=== PATIENT | female | born 1995 | race Caucasian/White ===

== ENCOUNTER 2025-08-10 04:49 | Inpatient (IN) | payer BC, SELFPAY ==
[2025-08-10] VITALS (23 sets, daily range): BP systolic 109–136; BP diastolic 55–77; PULSE 77–108; RESP 16–18; TEMP 36.3–37.2; O2SAT 98–100; BMI 30.3
--- OUTSIDE RECORDS SUMMARY | 2025-08-10 04:52 | XMS RPT_ITS | CCD ---
Author Organization [facility] Care Team Providers Care Bindery Machine Setter Name Role Phone NEIGHBARGER SUPERINTENDENT DISTRIBUTION~[phone], NEIGHBARGER CASEY Brown Attending Unavailable NEIGHBARGER SUPERINTENDENT DISTRIBUTION, CASEY D Consulting U navailable NONE, NONE Primary Care Unavailable NEIGHBARGER SUPERINTENDENT DISTRIBUTION~[phone], NEIGHBARGER CASEY D Admitting Unavailable NEIGHBARGER SUPERINTENDENT DISTRIBUTION, CASEY D Consulting U navailable NONE, NONE Consulting Unavailable NONE, NONE Consulting Unavailable Unavailable Primary Care Provider UnavailPatricia Gonsalves Attending Unavailable Omar, Patricia Admitting Unavailable Care Physician, No Primary Primary Care Unava ilable PATRICIA NELSON Referring Unavailable ELVIA MCKEON Attending Unavailable PLOTTS, ASHLEE Attending Unavailable NELSON, PATRICIA Referring Unavailable HAURY, PUJA Referring Unavailable PLOTTS, ASHLEE Attending Unavailable NELSON, PATRICIA Referring Unavailable NELSON, PATRICIA Attending Unavailable NELSON, PATRICIA Referring Unavailable NELSON, PATRICIA Referring Unavailable PLOTTS, ASHLEE Attending Unavailable PLOTTS, ASHLEE Attending Unavailable LETICIAELVIA TRIVEDI Attending Unavailable NELSON, PATRICIA Attending Unavailable EZIOWELLJAMES Attending Unavailable ERIK SANDOVAL Attending Unavailable HAURY, PUJA Attending Unavailable HAURY, PUJA Referring Unavailable DEERAEGAN Referring Unavailable LETICIA, ELVIA Attending Unavailable NELSON, PATRICIA Attending Unavailable NELSON, PATRICIA Attending Unavailable Medications Current Medications Medication Drug Class(es) Dates Sig (Normalized) Sig (Original) PNV no.95/ferrous fum/folic ac ( ORAL) (12 sources) PNV no.95/ferrou s fum/folic ac ( ORAL) Take by mouth. Active Completed/Discontinued Medications Medication Drug Class(es) Dates Sig (Normalized) Sig (Original) aspirin 81 mg delayed release oral tablet (3 sources) Platelet Aggregation Inhibitor, Nonsteroidal Anti-inflammatory Drug Start: 01-24-2025 End: 03-03-2025 take 1 tablet by mouth once daily aspirin, enteric coated (ECOTRIN LOW STRENGTH) 81 mg EC tablet Indications: Encounter for test, result positive (HCC) Take 1 tablet by mouth once daily. 90 tablet 3 01/24/2025 03/03/2025 Discontinued (Course of therapy completed) Problems Active Problems Problem Classification Problem Date Documented Da te Episodic/Chronic Diabetes mellitus without complication (6 sources) Abnormal glucose tolerance test; Translations: [Other abnormal glucose] Onset: 06-06-2025 06-20-2025 Episodic Diabetes or abnormal glucose tolerance complicating ; childbirth; or the puerperium (2 sources) Abnormal glucose level; Translations: [Abnormal glucose complicating ] Onset: 07-07-2025 07-07-2025 Episodic Hemorrhage during ; abruptio placenta; placenta previa (1 source) Antepartum hemorrhage; Translations: [Hemorrhage in early , unspecified] 11-21-2024 Episodic Menstrual disorders (1 source) Missed period; Translations: [Irregular menstruation, unspecified] 11-21-2024 Chronic Other complications of (1 source) Patient encounter status; Translations: [ with inconclusive viability, not applicable or unspecified] 01-24-2025 Episodic Other complications of (1 source) Supervision of other high risk pregnancies, first trimester; Translations: [Supervision of other high risk pregnancies, first trimester (HCC)] Onset: 07-22-2025 Episodic Other and delivery including normal (9 sources) with uncertain dates; Translations: [ test positive] Onset: 01-24-2025 01-24-2025 Episodic Other screening for suspected conditions (not mental disorders or infectious disease) (10 sources) Cancer cervix screening status; Translations: [Encounter for screening for malignant neoplasm of cervix] Onset: 11-29-2024 11-29-2024 Episodic Residual codes; unclassified (2 sources) Gestation period, 13 weeks; Translations: [13 weeks gestation of ] 02-24-2025 Episodic Residual codes; unclassified (1 source) Gestation period, 17 weeks; Translations: [17 weeks gestation of ] 03-21-2025 Episodic Residual codes; unclassified (1 source) Gestation period, 24 weeks; Translations: [24 weeks gestation of ] 05-09-2025 Episodic Residual codes; unclassified (1 source) Gestation period, 28 weeks; Translations: [28 weeks gestation of ] 06-06-2025 Episodic Residual codes; unclassified (1 source) Gestation period, 30 weeks; Translations: [30 weeks gestation of ] 06-20-2025 Episodic Residual codes; unclassified (1 source) Gestation period, 32 weeks; Translations: [32 weeks gestation of ] 07-07-2025 Episodic Residual codes; unclassified (1 source) Gestation period, 34 weeks; Translations: [34 weeks gestation of ] 07-22-2025 Episodic Residual codes; unclassified (1 source) Gestation period, 36 weeks; Translations: [36 weeks gestation of ] 08-01-2025 Episodic Residual codes; unclassified (1 source) 37 weeks gestation of ; Translations: [37 weeks gestation of (HCC)] Onset: 08-08-2025 Episodic Residual codes; unclassified (1 source) 36 weeks gestation of ; Translations: [36 weeks gestation of (HCC)] Onset: 08-01-2025 Episodic Residual codes; unclassified (1 source) 34 weeks gestation of ; Translations: [34 weeks gestation of (HCC)] Onset: 07-22-2025 Episodic Residual codes; unclassified (1 source) 32 weeks gestation of ; Translations: [32 weeks gestation of (HCC)] Onset: 07-07-2025 Episodic Residual codes; unclassified (1 source) 30 weeks gestation of ; Translations: [30 weeks gestation of (HCC)] Onset: 06-20-2025 Episodic Residual codes; unclassified (1 source) 24 weeks gestation of ; Translations: [24 weeks gestation of (HCC)] Onset: 06-06-2025 Episodic Residual codes; unclassified (1 source) 28 weeks gestation of ; Translations: [28 weeks gestation of (HCC)] Onset: 06-06-2025 Episodic Unclassified (12 sources) [facility] Education - COMMON Onset: 01-24-2025 01-24-2025 Unclassified (12 sources) Education - [place] Onset: 01-24-2025 01-24-2025 Urinary tract infections (3 sources) Urinary tract infection, site not specified; Translations: [UTI SITE NOT SPECIFIED] Onset: 12-31-2023 Episodic Past or Other Problems Problem Classification Problem Date Documented Da te Episodic/Chronic Cancer of cervix (17 sources) Atypical squamous cells of undetermined significance on cervical Papanicolaou smear; Translations: [Atypical squamous cells of undetermined significance on cytologic smear of cervix (ASC-US)] Onset: 12-13-2024 12-06-2024 Episodic Contraceptive and procreative management (4 sources) Social and personal history finding; Translations: [Encounter for procreative management, unspecified] Onset: 11-29-2024 11-29-2024 Episodic Other complications of (20 sources) High risk ; Translations: [Supervision of other high risk pregnancies, first trimester] Onset: 01-24-2025 01-24-2025 Episodic Other complications of (1 source) Supervision of high risk , unspecified, second trimester; Translations: [Supervision of high risk in second trimester (HCC)] Onset: 04-11-2025 Episodic Residual codes; unclassified (1 source) 20 weeks gestation of ; Translations: [20 weeks gestation of (HCC)] Onset: 04-11-2025 Episodic Residual codes; unclassified (1 source) 17 weeks gestation of ; Translations: [17 weeks gestation of ([facility])] Onset: 03-21-2025 Episodic NEGATED: Highlighted row has been ruled out!Unclassified (4 sources) No known active problems 11-21-2024 Results Test Name Value Interpretation Reference Range Facil ity ROUTINE, GROUP B ST REPTOCOCCUS BY PCRon 08-01-2025 ROUTINE, GROUP B STREPTOCOCCUS BY PCR Not detected Normal [facility] Comment on above: Performed By: #### G BPCR #### [facility] CLIA [id number] [address] [place] [address] [place] URINE OB DIP B/Oon 5 Glucose Ql (U) 250 mg/dL Neg [facility] Interpretation and review of laboratory results Normal [facility] Protein.monoclonal (U) [Mass/Vol] Negative Neg mg/dL [facility] URINE OB DIP B/Oon 5 Glucose Ql (U) Negative Neg mg/dL [facility] Interpretation and review of laboratory results Normal [facility] Protein.monoclonal (U) [Mass/Vol] Negative Neg mg/dL [facility] GLUCOSE GESTATIONAL, 1 HOURo n 06-13-2025 Glucose 1 Hr post Unsp challenge [Mass/Vol] 182 mg/dL High 74-179 [facility] Comment on above: Order Comment: Speci men Type: BLOOD SPECIMENOrdering Facility: [facility] Address: [address] [place] [address] Result Comment: [facility] Congress of Obstetricians and Gynecologists (Jaime/Yahir) guidelines state gestational diabetes mellitus is present when 2 or more of the plasma glucose concentrations meet or exceed the following levels: fastin mg/dl, 1 hr: 180 mg/dl, 2 hr: 155 mg/dl, and 3 hr: 140 mg/dl. Performed By: #### G TGST1 ####[facility] [id number] [place] [address] [place] GLUCOSE GESTATIONAL, 2 HOURo n 06-13-2025 Glucose 2 Hr post Unsp challenge [Mass/Vol] 131 mg/dL Normal 74-154 [facility] Comment on above: Order Comment: Speci men Type: SWAB [facility] Address: [address] [place] [address] Result Comment: [facility] Congress of Obstetricians and Gynecologists (Jaime/Yahir) guidelines state gestational diabetes mellitus is present when 2 or more of the plasma glucose concentrations meet or exceed the following levels: fastin mg/dl, 1 hr: 180 mg/dl, 2 hr: 155 mg/dl, and 3 hr: 140 mg/dl. Performed By: #### 3 6902-5 #### [facility] CLIA [id number] [address] [place] [address] [place] GLUCOSE GESTATIONAL, 3 HOURo n 06-13-2025 Glucose 3 Hr post Unsp challenge [Mass/Vol] 110 mg/dL Normal 74-139 [facility] Comment on above: Order Comment: Speci men Type: SWAB [facility] Address: [address] [place] [address] Result Comment: [facility] Congress of Obstetricians and Gynecologists (Sandoval/Coustan) guidelines state gestational diabetes mellitus is present when 2 or more of the plasma glucose concentrations meet or exceed the following levels: fastin mg/dl, 1 hr: 180 mg/dl, 2 hr: 155 mg/dl, and 3 hr: 140 mg/dl. Performed By: #### 3 6902-5 #### [facility] CLIA [id number] [address] [place] [address] [place] GLUCOSE GESTATIONAL, FASTING on 06-13-2025 Glucose post fast [Mass/Vol] 93 mg/dL Normal 74-94 [facility] Comment on above: Order Comment: Speci men Type: BLOOD SPECIMENOrdering Facility: [facility] Address: [address] [place] [address] Result Comment: [facility] Congress of Obstetricians and Gynecologists (Chester/Yahir) guidelines state gestational diabetes mellitus is present when 2 or more of the plasma glucose concentrations meet or exceed the following levels: fastin mg/dl, 1 hr: 180 mg/dl, 2 hr: 155 mg/dl, and 3 hr: 140 mg/dl. Performed By: #### G TGSTF ####[facility] [id number] [place] [address] [place] CBC W Auto Differential pane l (Bld)on 06-06-2025 Basophils (Bld) [#/Vol] 10*3/uL Normal <0.11 [facility] Comment on above: Order Comment: Speci men Type: BLOOD SPECIMENOrdering Facility: [facility] Address: [address] [place] [address] Performed By: #### 5 7021-8 ####[facility] [id number] [address] STATES OF [facility] Basophils/100 WBC (Bld) 0.2 % Normal [facility] Comment on above: Order Comment: Chelii men Type: BLOOD SPECIMENOrdering Facility: [facility] Address: [address] [place] [address] Performed By: #### 5 7021-8 ####[facility] MILLODINNCLIA [id number] [place] [address] [place] Differential cell count method Nom (Bld) Auto Normal [facility] Comment on above: Order Comment: Speci men Type: BLOOD SPECIMENOrdering Facility: [facility] Address: [address] [place] [address] Performed By: #### 5 7021-8 ####[facility]ITALEDILIA [id number] [place] [address] [place] Eosinophils (Bld) [#/Vol] 0.03 10*3/uL Normal <0.46 [facility] Comment on above: Order Comment: Speci men Type: BLOOD SPECIMENOrdering Facility: [facility] Address: [address] [place] [address] Performed By: #### 5 7021-8 ####[facility] [id number] [place] [address] [place] Eosinophils/100 WBC (Bld) 0.4 % Normal [facility] Comment on above: Order Comment: Speci men Type: BLOOD SPECIMENOrdering Facility: [facility] Address: [address] [place] [address] Performed By: #### 5 7021-8 ####[facility]ITALEDILIA [id number] [place] [address] [place] Erythrocyte distribution width (RBC) [Ratio] 12.3 % Normal 11.5-15.0 [facility] Comment on above: Order Comment: Speci men Type: BLOOD SPECIMENOrdering Facility: [facility] Address: [address] [place] [address] Performed By: #### 5 7021-8 ####[facility]ITALNCLIA [id number] [place] [address] [place] Hematocrit (Bld) [Volume fraction] 35.6 % Low 36.0-46.0 [facility] Comment on above: Order Comment: Speci men Type: BLOOD SPECIMENOrdering Facility: [facility] Address: [address] [place] [address] Performed By: #### 5 7021-8 ####[facility]ITALNCSTEW[facility] [id number] [place] [address] [place] Hemoglobin (Bld) [Mass/Vol] 12.4 g/dL Normal 11.5-15.5 [facility] Comment on above: Order Comment: Speci men Type: BLOOD SPECIMENOrdering Facility: [facility] Address: [address] [place] [address] Performed By: #### 5 7021-8 ####[facility]ITALNCST[facility] [id number] [place] [address] [place] Immature granulocytes (Bld) [#/Vol] 0.06 10*3/uL Normal <0.10 [facility] Comment on above: Order Comment: Speci men Type: BLOOD SPECIMENOrdering Facility: [facility] Address: [address] [place] [address] Performed By: #### 5 7021-8 ####[facility]ITALNCLIA [id number] [place] [address] [place] Immature granulocytes/100 WBC (Bld) 0.7 % Normal [facility] Comment on above: Order Comment: Speci men Type: BLOOD SPECIMENOrdering Facility: [facility] Address: [address] [place] [address] Performed By: #### 5 7021-8 ####[facility]ITALNCLIA [id number] [place] [address] [place] Lymphocytes (Bld) [#/Vol] 1.67 10*3/uL Normal 1.00-4.00 [facility] Comment on above: Order Comment: Speci men Type: BLOOD SPECIMENOrdering Facility: [facility] Address: [address] [place] [address] Performed By: #### 5 7021-8 ####[facility] ZULLYYVES [id number] [address] STATES [facility] Lymphocytes/100 WBC (Bld) 20.0 % Normal [facility] Comment on above: Order Comment: Speci men Type: BLOOD SPECIMENOrdering Facility: [facility] Address: [address] [place] [address] Performed By: #### 5 7021-8 ####[facility] HOSPITALNCVALENTÍN [id number] [place] [address] [place] MCH (RBC) [Entitic mass] 31.0 pg Normal 26.0-34.0 [facility] Comment on above: Order Comment: Speci men Type: BLOOD SPECIMENOrdering Facility: [facility] Address: [address] [place] [address] Performed By: #### 5 7021-8 ####[facility] HOSPITALNCJania [id number] [place] [address] [place] MCHC (RBC) [Mass/Vol] 34.8 g/dL Normal 30.5-36.0 [facility] Comment on above: Order Comment: Speci men Type: BLOOD SPECIMENOrdering Facility: [facility] Address: [address] [place] [address] Performed By: #### 5 7021-8 ####[facility]OS[facility]ITALNCLIA [id number] [place] [address] [place] MCV (RBC) [Entitic vol] 89.0 fL Normal 80.0-100.0 [facility] Comment on above: Order Comment: Speci men Type: BLOOD SPECIMENOrdering Facility: [facility] Address: [address] [place] [address] Performed By: #### 5 7021-8 ####[facility] MILLWNCLIA [id number] [place] [address] [place] Monocytes (Bld) [#/Vol] 0.40 10*3/uL Normal <0.87 [facility] Comment on above: Order Comment: Speci men Type: BLOOD SPECIMENOrdering Facility: [facility] Address: [address] [place] [address] Performed By: #### 5 7021-8 ####[facility] HOSPITALLIA [id number] [place] [address] [place] Monocytes/100 WBC (Bld) 4.8 % Normal [facility] Comment on above: Order Comment: Speci men Type: BLOOD SPECIMENOrdering Facility: [facility] Address: [address] [place] [address] Performed By: #### 5 7021-8 ####[facility] HOSPITALLIA [id number] [place] [address] [place] Neutrophils (Bld) [#/Vol] 6.16 10*3/uL Normal 1.45-7.50 [facility] Comment on above: Order Comment: Speci men Type: BLOOD SPECIMENOrdering Facility: [facility] Address: [address] [place] [address] Performed By: #### 5 7021-8 ####[facility] HOSPITALLIA [id number] [place] [address] [place] Neutrophils/100 WBC (Bld) 73.9 % Normal [facility] Comment on above: Order Comment: Speci men Type: BLOOD SPECIMENOrdering Facility: [facility] Address: [address] [place] [address] Performed By: #### 5 7021-8 ####[facility] HOSPITALLIA [id number] [place] [address] [place] Nucleated RBC (Bld) [#/Vol] 10*3/uL Normal <0.01 [facility] Comment on above: Order Comment: Speci men Type: BLOOD SPECIMENOrdering Facility: [facility] Address: [address] [place] [address] Performed By: #### 5 7021-8 ####[facility] [id number] [place] [address] [place] Nucleated RBC/100 WBC (Bld) [Ratio] 0.0 /100 WBC Normal [facility] Comment on above: Order Comment: Speci men Type: BLOOD SPECIMENOrdering Facility: [facility] Address: [address] [place] [address] Performed By: #### 5 7021-8 ####[facility] [id number] [place] [address] [place] Platelet mean volume (Bld) [Entitic vol] 10.1 fL Normal 9.0-12.7 [facility] Comment on above: Order Comment: Speci men Type: BLOOD SPECIMENOrdering Facility: [facility] Address: [address] [place] [address] Performed By: #### 5 7021-8 ####[facility] [id number] [place] [address] [place] Platelets (Bld) [#/Vol] 191 10*3/uL Normal 150-400 [facility] Comment on above: Order Comment: Speci men Type: BLOOD SPECIMENOrdering Facility: [facility] Address: [address] [place] [address] Performed By: #### 5 7021-8 ####[facility]ENTERA [id number] [place] [address] [place] RBC (Bld) [#/Vol] 4.00 10*6/uL Normal 3.90-5.20 [facility] Comment on above: Order Comment: Speci men Type: BLOOD SPECIMENOrdering Facility: [facility] Address: [address] [place] [address] Performed By: #### 5 7021-8 ####[facility] CENTERJania [id number] [place] [address] [place] WBC (Bld) [#/Vol] 8.34 10*3/uL Normal 3.70-11.00 [facility] Comment on above: Order Comment: Speci men Type: BLOOD SPECIMENOrdering Facility: [facility] Address: [address] [place] [address] Performed By: #### 5 7021-8 ####[facility] [id number] [place] [address] [place] GESTATIONAL GLUCOSE SCREEN, 1-HOUR, 50 GRAM, NON-FASTINGon 06-06-2025 Glucose [Mass/Vol] 162 mg/dL High 74-134 [facility] Comment on above: Order Comment: Speci men Type: SWAB [facility] Address: [address] [place] [address] Result Comment: [facility] Congress of Obstetricians and Gynecologists (Jaime/Yahir) guidelines state a gestational diabetes mellitus positive screen is made, in women not previously diagnosed with overt diabetes, when the 1 hr plasma glucose level is equal to or above 140 mg/dL. [facility] [employer] [facility] recommends a 135 mg/dL cutoff. Performed By: #### 3 6902-5 #### [facility] CLIA [id number] [address] [place] [address] [place] Reagin and Treponema pallidu m IgG and IgM [Interp]on 06-06-2025 T. pallidum IgG+IgM IA Ql (S) Non-Reactive Normal Nonreactive [facility] Comment on above: Order Comment: Speci men Type: BLOOD SPECIMENOrdering Facility: [facility] Address: [address] [place] [address] Performed By: #### 7 3752-8 ####[facility] LABCLIA [id number] [place] [id number] [place] Reagin+T pallidum IgG+IgM Se rPl-Impon 06-06-2025 Reagin and Treponema pallidum IgG and IgM [Interp] Cannot exclude recent Treponemal infection if specimen collected within 7-10 days after appearance of suspect lesions or 2-3 weeks after an exposure. Clinical correlation is required. Normal [facility] Comment on above: Order Comment: Speci men Type: BLOOD SPECIMENOrdering Facility: [facility] Address: [address] [place] [address] Performed By: #### 7 3752-8 ####[facility] LABCLIA [id number] [place] [id number] [facility] CNPGwendolyn 04-23-2025 CNPN Telephone (OBGYWM) CHARLIE SEXTONA ([id number]) 1995 F Date Time Provider Department 04/23/25 ASHLEE WHITNEY OBGYWHeladio During your visit today, we recorded the following information about you: Fawn Boston RN 04/23/2025 11:36 AM Signed Breast pump order received from [employer]. To to sign. HEATHER Burleson Lindsey, RN 04/24/2025 8:25 AM Signed Order signed and faxed. Charlotte Murdock RN Allergies As of Date: 04/23/2025 (No Known Allergies) Date Reviewed: 04/11/2025 Reviewed by: Tanmay Moore MA - Fully Assessed Reason for Visit: Breast Pump [Other] Prescriptions as of 04/24/2025 - PNV no.95/ferrous fum/folic ac ( ORAL) Take by mouth. Problem List As Of Date 04/23/2025 Noted Resolved ASCUS with positive high risk HPV cervical [R87*12/13/2024 Supervision of other high risk pregnancies, fir*01/24/2025 Encounter Status:Closed by CHARLOTTE MURDOCK on 04/24/25 Normal [facility] Examination level ultrasound on 02-24-2025 Indication First trimester anatomic survey Impression REMOTE READ The patient is referred for a first trimester anatomy scan including nuchal translucency measurement as clinically indicated. - Single, live, intrauterine . - [place] rump length measurement is consistent with the established gestational age. - No malformations visualized on a complete first trimester anatomic assessment. - The nuchal translucency measurement is 2 mm. - Not all structural malformations can be detected by ultrasound examination. Maternal Structures: Right Ovary: Size 31 mm x 22 mm x 19 mm Recommendations Return for anatomy ultrasound Maternal Assessment Height 163 cm Height (ft) 5 ft Height (in) 4 in Physical Exam Initial weight (lb) 142 lb Initial BMI 24.37 kg/m Maternal assessment other: 2 Para 0 Method Transabdominal ultrasound examination Reed . Number of fetuses: 1 Dating LMP on: 11/21/2024 GA by LMP 13 w + 4 d BETHANY by LMP: 08/28/2025 GA by prior assessment 13 w + 4 d BETHANY by prior assessment: 08/28/2025 Ultrasound examination on: 02/24/2025 GA by U/S based upon: AC, BPD, CRL, Femur, HC GA by U/S 14 w + 1 d BETHANY by U/S: 08/24/2025 Assigned: based on stated BETHANY, selected on 02/24/2025 Assigned GA 13 w + 4 d Assigned BETHANY: 08/28/2025 General Evaluation Cardiac activity present Placenta: posterior Cord vessels: 3 vessel cord Amniotic fluid: normal amount Biometry Standard FHR 163 bpm CRL 82.3 mm 14w 1d 83% Hadlock NT 2.00 mm BPD 25.7 mm 14w 3d 79% Hadlock HC 96.4 mm 13w 5d 53% Kavon AC 80.0 mm 14w 3d 83% Hadlock Femur 13.4 mm 13w 5d 60% Kavon Extended OFD 34.0 mm -/- Nicolaides First Trimester Anatomy Calvarium: normal Falx cerebri: normal Choroid plexus: normal Profile: normal Nasal bone: normal Retronasal triangle: normal Maxilla: normal Mandible: normal Nuchal translucency: Unremarkable Situs: normal Cardiac position: normal Cardiac axis: normal 4-chamber view: visualized 4-chamber view with color: visualized 3-mkvluw-kdbownd view: normal Abdominal cord insertion: normal Stomach: normal Kidneys: visualized Bladder: normal Color doppler of perivesical umbilical arteries: normal Vertebral alignment: normal Arms: normal Hands: normal Legs: normal Feet: normal Maternal Structures Uterus / Cervix Uterus: Visualized Uterus length 137 mm Uterus width 88 mm Uterus height 94 mm Uterus Vol 590.9 cm Ovaries / Tubes / Adnexa Rt ovary: Visualized Rt ovary D1 31 mm Rt ovary D2 22 mm Rt ovary D3 19 mm Rt ovary Vol 6.8 cm Lt ovary: Not visualized Performed By: Charlotte Blevins RDMS, RVT Read By: Abigail Conde M.D. MATERNAL MEDICINE [facility] Radiology Study observation (narrative) [facility] BACTERIAL VAGINOSIS NAATon 0 01-24-2025 Lactobacillus crispatus+gasseri+je nsenii + Gardnerella vaginalis + Atopobium vaginae rRNA ANJUM+probe Ql (Vag fld) Not detected Normal Not detected [facility] Comment on above: Order Comment: Speci men Type: SWAB [facility]ing Facility[facility] Address: [address] [place] [address] Performed By: #### 3 6902-5 #### [facility] CLIA [id number] [address] [place] [address] [place] Bacteria Ur Culton Bacteria identified Cx Nom (U) CULTURE, URINE: No growth (<1,000 CFU/ml) Normal [facility] Comment on above: Performed By: #### 6 30-4 ####[facility] LABCLIA [id number] [place] [address] [place] C. trachomatis+N. gonorrhoea e DNA ANJUM+probe Ql (Unsp spec)on 01-24-2025 C. trachomatis rRNA ANJUM+probe Ql (Unsp spec) Not detected Normal Not detected [facility] Comment on above: Order Comment: Speci men Type: SWAB [facility] Address: [address] [place] [address] Performed By: #### 3 6902-5 #### [facility] CLIA [id number] [address] [place] [address] [place] N. gonorrhoeae rRNA ANJUM+probe Ql (Unsp spec) Not detected Normal Not detected [facility] Comment on above: Order Comment: Speci men Type: SWAB [facility] Address: [address] [place] [address] Performed By: #### 3 6902-5 #### [facility] CLIA [id number] [address] [place] [address] [place] CARLINE/TRICHOMONAS NAATon 0 01-24-2025 C. glabrata RNA ANJUM+probe Ql (Vag fld) Not detected Normal Not detected [facility] Comment on above: Order Comment: Speci men Type: SWAB [facility] Address: [address] [place] [address] Performed By: #### 3 6902-5 #### [facility] CLIA [id number] [address] [place] [address] [place] Carline sp DNA ANJUM+probe Ql (Vag fld) Not detected Normal Not detected [facility] Comment on above: Order Comment: Speci men Type: SWAB [facility] Address: [address] [place] [address] Result Comment: The Carline species group target includes C. albicans, C. tropicalis, C. parapsilosis, and C. dubliniensis. Performed By: #### 3 6902-5 #### [facility] CLIA [id number] [address] [place] [address] [place] T. vaginalis DNA ANJUM+probe Ql (Unsp spec) Not detected Normal Not detected [facility] Comment on above: Order Comment: Speci men Type: SWAB [facility] Address: [address] [place] [address] Performed By: #### 3 6902-5 #### [facility] CLIA [id number] [address] [place], [place] [address] [address] [place] CBC W Auto Differential pane l (Bld)on 01-24-2025 Basophils (Bld) [#/Vol] 0.03 10*3/uL Normal <0.11 [facility] Comment on above: Order Comment: Speci men Type: BLOOD SPECIMENOrdering Facility: [facility] Address: [address] [place] [address] Performed By: #### 5 7021-8 ####[facility] [id number] [place] [address] [place] Basophils/100 WBC (Bld) 0.3 % Normal [facility] Comment on above: Order Comment: Speci men Type: BLOOD SPECIMENOrdering Facility: [facility] Address: [address] [place] [address] Performed By: #### 5 7021-8 ####[facility] [id number] [place] [address] [place] Differential cell count method Nom (Bld) Auto Normal [facility] Comment on above: Order Comment: Speci men Type: BLOOD SPECIMENOrdering Facility: [facility] Address: [address] [place] [address] Performed By: #### 5 7021-8 ####[facility] [id number] [place] [address] [place] Eosinophils (Bld) [#/Vol] 0.04 10*3/uL Normal <0.46 [facility] Comment on above: Order Comment: Speci men Type: BLOOD SPECIMENOrdering Facility: [facility] Address: [address] [place] [address] Performed By: #### 5 7021-8 ####[facility] CYNDYLIA [id number] [place] [address] [place] Eosinophils/100 WBC (Bld) 0.4 % Normal [facility] Comment on above: Order Comment: Speci men Type: BLOOD SPECIMENOrdering Facility: [facility] Address: [address] [place] [address] Performed By: #### 5 7021-8 ####[facility] ZULLYODINEDILIA [id number] [place] [address] [place] Erythrocyte distribution width (RBC) [Ratio] 11.7 % Normal 11.5-15.0 [facility] Comment on above: Order Comment: Speci men Type: BLOOD SPECIMENOrdering Facility: [facility] Address: [address] [place] [address] Performed By: #### 5 7021-8 ####[facility]ITAL[facility] [id number] [place] [address] [place] Hematocrit (Bld) [Volume fraction] 42.3 % Normal 36.0-46.0 [facility] Comment on above: Order Comment: Speci men Type: BLOOD SPECIMENOrdering Facility: [facility] Address: [address] [place] [address] Performed By: #### 5 7021-8 ####[facility]ITALEDILIA [id number] [place] [address] [place] Hemoglobin (Bld) [Mass/Vol] 14.4 g/dL Normal 11.5-15.5 [facility] Comment on above: Order Comment: Speci men Type: BLOOD SPECIMENOrdering Facility: [facility] Address: [address] [place] [address] Performed By: #### 5 7021-8 ####[facility]ITALNCLIA [id number] [place] [address] [place] Immature granulocytes (Bld) [#/Vol] 0.03 10*3/uL Normal <0.10 [facility] Comment on above: Order Comment: Speci men Type: BLOOD SPECIMENOrdering Facility: [facility] Address: [address] [place] [address] Performed By: #### 5 7021-8 ####[facility]ITALNCST[facility] [id number] [place] [address] [place] Immature granulocytes/100 WBC (Bld) 0.3 % Normal [facility] Comment on above: Order Comment: Speci men Type: BLOOD SPECIMENOrdering Facility: [facility] Address: [address] [place] [address] Performed By: #### 5 7021-8 ####[facility] [id number] [place] [address] [place] Lymphocytes (Bld) [#/Vol] 2.12 10*3/uL Normal 1.00-4.00 [facility] Comment on above: Order Comment: Speci men Type: BLOOD SPECIMENOrdering Facility: [facility] Address: [address] [place] [address] Performed By: #### 5 7021-8 ####[facility] [id number] [place] [address] [place] Lymphocytes/100 WBC (Bld) 20.8 % Normal [facility] Comment on above: Order Comment: Speci men Type: BLOOD SPECIMENOrdering Facility: [facility] Address: [address] [place] [address] Performed By: #### 5 7021-8 ####[facility] [id number] [place] [address] [place] MCH (RBC) [Entitic mass] 30.0 pg Normal 26.0-34.0 [facility] Comment on above: Order Comment: Speci men Type: BLOOD SPECIMENOrdering Facility: [facility] Address: [address] [place] [address] Performed By: #### 5 7021-8 ####[facility] BRYN [id number] [address] [place] MCHC (RBC) [Mass/Vol] 34.0 g/dL Normal 30.5-36.0 [facility] Comment on above: Order Comment: Speci men Type: BLOOD SPECIMENOrdering Facility: [facility] Address: [address] [place] [address] Performed By: #### 5 7021-8 ####[facility]ITALNC[facility] [id number] [place] [address] [place] MCV (RBC) [Entitic vol] 88.1 fL Normal 80.0-100.0 [facility] Comment on above: Order Comment: Speci men Type: BLOOD SPECIMENOrdering Facility: [facility] Address: [address] [place] [address] Performed By: #### 5 7021-8 ####[facility] [id number] [place] [address] [place] Monocytes (Bld) [#/Vol] 0.50 10*3/uL Normal <0.87 [facility] Comment on above: Order Comment: Speci men Type: BLOOD SPECIMENOrdering Facility: [facility] Address: [address] [place] [address] Performed By: #### 5 7021-8 ####[facility]ITALNCLIA [id number] [place] [address] [place] Monocytes/100 WBC (Bld) 4.9 % Normal [facility] Comment on above: Order Comment: Speci men Type: BLOOD SPECIMENOrdering Facility: [facility] Address: [address] [place] [address] Performed By: #### 5 7021-8 ####[facility] H[facility]PITALALLIA [id number] [place] [address] [place] Neutrophils (Bld) [#/Vol] 7.46 10*3/uL Normal 1.45-7.50 [facility] Comment on above: Order Comment: Speci men Type: BLOOD SPECIMENOrdering Facility: [facility] Address: [address] [place] [address] Performed By: #### 5 7021-8 ####[facility] [id number] [place] [address] [place] Neutrophils/100 WBC (Bld) 73.3 % Normal [facility] Comment on above: Order Comment: Speci men Type: BLOOD SPECIMENOrdering Facility: [facility] Address: [address] [place] [address] Performed By: #### 5 7021-8 ####[facility] [id number] [place] [address] [place] Nucleated RBC (Bld) [#/Vol] 10*3/uL Normal <0.01 [facility] Comment on above: Order Comment: Speci men Type: BLOOD SPECIMENOrdering Facility: [facility] Address: [address] [place] [address] Performed By: #### 5 7021-8 ####[facility] [id number] [place] [address] [place] Nucleated RBC/100 WBC (Bld) [Ratio] 0.0 /100 WBC Normal [facility] Comment on above: Order Comment: Speci men Type: BLOOD SPECIMENOrdering Facility: [facility] Address: [address] [place] [address] Performed By: #### 5 7021-8 ####[facility]ITALNCLIA [id number] [place] [address] [place] Platelet mean volume (Bld) [Entitic vol] 10.4 fL Normal 9.0-12.7 [facility] Comment on above: Order Comment: Speci men Type: BLOOD SPECIMENOrdering Facility: [facility] Address: [address] [place] [address] Performed By: #### 5 7021-8 ####[facility]ITALNCST[facility] [id number] [place] [address] [place] Platelets (Bld) [#/Vol] 215 10*3/uL Normal 150-400 [facility] Comment on above: Order Comment: Speci men Type: BLOOD SPECIMENOrdering Facility: [facility] Address: [address] [place] [address] Performed By: #### 5 7021-8 ####[facility]ITALNC[facility] [id number] [place] [address] [place] RBC (Bld) [#/Vol] 4.80 10*6/uL Normal 3.90-5.20 [facility] Comment on above: Order Comment: Speci men Type: BLOOD SPECIMENOrdering Facility: [facility] Address: [address] [place] [address] Performed By: #### 5 7021-8 ####[facility] HOSPITALNCA [id number] [place] [address] [place] WBC (Bld) [#/Vol] 10.18 10*3/uL Normal 3.70-11.00 [facility] Comment on above: Order Comment: Speci men Type: BLOOD SPECIMENOrdering Facility: [facility] Address: [address] [place] [address] Performed By: #### 5 7021-8 ####[facility]ITALNC[facility] [id number] [place] [address] [place] HBV surface Ag Ser Qlon 03-0 HBV surface Ag Ql (S) Negative Normal Negative [facility] Comment on above: Order Comment: Speci men Type: BLOOD SPECIMENOrdering Facility: [facility] Address: [address] [place] [address] Performed By: #### 5 195-3, 23396-0, 24843-0 ####[facility] LABCLIA [id number] [place] [address] [place] HCV Ab Ser Qlon 01-24-2025 HCV Ab Ql (S) Negative Normal Negative [facility] Comment on above: Order Comment: Speci men Type: BLOOD SPECIMENOrdering Facility: [facility] Address: [address] [place] [address] Result Comment: The result suggests no evidence of active infection with Hepatitis C virus. Should recent infection be suspected, repeat testing may be considered 4-6 weeks after this draw. Performed By: #### 1 6128-1 ####[facility] LABCLIA [id number] [place] [address] [place] HGB ELECTROPHORESIS FOR EVAL (LAB ORDER)on 01-24-2025 Hemoglobin A (Bld) [Mass fraction] 97.3 % Normal 96.2-98.0 [facility] Comment on above: Order Comment: Speci men Type: SWAB [facility] Address: [address] [place] [address] Performed By: #### 3 6902-5 #### [facility] CLIA [id number] [address] [place] [address] [place] Hemoglobin A2 (Bld) [Mass fraction] 2.7 % Normal 2.0-3.1 [facility] Comment on above: Order Comment: Speci men Type: SWAB [facility] Address: [address] [place] [address] Performed By: #### 3 6902-5 #### [facility] CLIA [id number] [address] [place] [address] [place] Hemoglobin Unsp Elph (Bld) [Mass fraction] No abnormal hemoglobin identified. Normal No abnormal hemoglobin identified. [facility] Comment on above: Order Comment: Speci men Type: SWAB [facility] Address: [address] [place] [address] Performed By: #### 3 6902-5 #### [facility] CLIA [id number] [address] [place] [address] [place] HGB EVALUATION CASCADE INTER Jourdan 01-24-2025 Hemoglobin pattern (Bld) [Interp] Reviewed by Gogo nAguiano M.D. Normal [facility] Comment on above: Order Comment: Speci men Type: SWAB [facility] Address: [address] [place] [address] Performed By: #### 3 6902-5 #### [facility] CLIA [id number] [address] [place] [address] [place] INTERPRETATION (HGB EVAL) Normal [facility] Comment on above: Order Comment: Speci men Type: SWAB [facility] Address: [address] [place] [address] Result Comment: Hemo globins were analyzed by capillary electrophoresis and CBC red cell parameters were reviewed. No abnormal hemoglobin is identified. There is a normal hemoglobin capillary electrophoresis pattern. Performed By: #### 3 6902-5 #### [facility] CLIA [id number] [address] [place] [address] [place] HIV 1+2 Ab IA Qlon 5 HIV 1 and 2 Ab IA.rapid Nom (S/P/Bld) Normal [facility] Comment on above: Order Comment: Speci men Type: BLOOD SPECIMENOrdering Facility: [facility] Address: [address] [place] [address] Result Comment: Test not indicated. Performed By: #### 5 195-3, 91208-5, 14720-1 ####[facility] LABCLIA [id number] [place] [address] [place] HIV 1+2 Ab+HIV1 p24 Ag IA Ql Non-Reactive Normal Nonreactive [facility] Comment on above: Order Comment: Speci men Type: BLOOD SPECIMENOrdering Facility: [facility] Address: [address] [place] [address] Performed By: #### 5 195-3, 44631-3, 99973-1 ####[facility] LABCLIA [id number] [address] [place] HIV immunoassay testing algorithm interpretation (S/P/Bld) [Interp] Normal [facility] Comment on above: Order Comment: Speci men Type: BLOOD SPECIMENOrdering Facility: [facility] Address: [address] [place] [address] Result Comment: No e vidence of HIV-1 or HIV-2 infection. Should recent infection be suspected, repeat testing may be considered 2-3 weeks after this draw. [place] Rev. Code 3701.243(E): This information has been disclosed to you from confidential records protected from disclosure by state law. ???You shall make no further disclosure of this information without the specific, written, and informed release of the individual to whom it pertains or as otherwise permitted by state law. A general authorization for the release of medical or other information is not sufficient for the purpose of the release of HIV test results or diagnoses. Performed By: #### 5 195-3, 70403-8, 56670-1 ####[facility] LABCLIA [id number] [place] [address] [place] [facility] [place] HbA1c (Bld)on 01-24-2025 Average glucose Estimated from glycated hemoglobin (Bld) [Mass/Vol] 91 mg/dL Normal [facility] Comment on above: Order Comment: Speci men Type: SWAB [facility] Address: [address] [place] [address] Result Comment: eAG: (Estimated average glucose) is a calculated value from HgbA1c and is medical representative of the average blood glucose level in the last 2-3 month period. Performed By: #### 3 6902-5 #### [facility] CLIA [id number] [address] [place] [address] [place] HbA1c (Bld) [Mass fraction] 4.8 % Normal 4.3-5.6 [facility] Comment on above: Order Comment: Speci men Type: SWAB [facility] Address: [address] [place] [address] Result Comment: [place] [employer] guidelines indicate that patients with HgbA1c in the range 5.7-6.4% are at increased risk for development of diabetes, and intervention by lifestyle modification may be beneficial. HgbA1c greater or equal to 6.5% is considered diagnostic of diabetes. Performed By: #### 3 6902-5 #### [facility] CLIA [id number] [address] [place] [address] [place] POC SIGNALS OFFICER ULTRASOUNDon 01-25-20 Indication Viability; confirm cardiac activity Impression Single intrauterine gestational sac, CRL is appropriate for clinical dates, corresponding to BETHANY 08/28/25. cardiac activity is visualized Recommendations Follow up for 1st Trimester Anatomy with Nuchal Translucency as clinically indicated if desired. Method Transabdominal and transvaginal ultrasound examination Reed . Number of embryos: 1 Dating LMP on: 11/21/2024 GA by LMP 9 w + 1 d BETHANY by LMP: 08/28/2025 Ultrasound examination on: 01/24/2025 GA by U/S based upon: CRL GA by U/S 9 w + 1 d BETHANY by U/S: 08/28/2025 Assigned: based on the LMP, selected on 01/24/2025 Assigned GA 9 w + 1 d Assigned BETHANY: 08/28/2025 Biometry Standard FHR 161 bpm CRL 24.3 mm 9w 1d 57% Hadlock Assessment Gestational sac: visualized Location: intrauterine Yolk sac: visualized Embryo: visualized CRL 24.3 mm 9w 1d 57% Hadlock Cardiac activity: present FHR 161 bpm General Evaluation Cardiac activity present. FHR 161 bpm Performed By: Patricia Nelson CNM Read By: Patricia Nelson CNM MATERNAL MEDICINE [facility] Radiology Study observation (narrative) [facility] RBC PARAMETERS FOR HB IDon 0 01-24-2025 Erythrocyte distribution width (RBC) [Ratio] 11.9 % Normal 11.5-15.0 [facility] Comment on above: Order Comment: Speci men Type: BLOOD SPECIMENOrdering Facility: [facility] Address: [address] [place] [address] Performed By: #### L [id number] ####[facility] LABIA [id number] [place] [address] [place] Hematocrit (Bld) [Volume fraction] 41.8 % Normal 36.0-46.0 [facility] Comment on above: Order Comment: Speci men Type: BLOOD SPECIMENOrdering Facility: [facility] Address: [address] [place] [address] Performed By: #### L [id number] ####[facility] LABIA [id number] [place] [address] [place] Hemoglobin (Bld) [Mass/Vol] 14.3 g/dL Normal 11.5-15.5 [facility] Comment on above: Order Comment: Speci men Type: BLOOD SPECIMENOrdering Facility: [facility] Address: [address] [place] [address] Performed By: #### L [id number] ####[facility] LABIA [id number] [place] [address] [place] MCH (RBC) [Entitic mass] 30.6 pg Normal 26.0-34.0 [facility] Comment on above: Order Comment: Speci men Type: BLOOD SPECIMENOrdering Facility: [facility] Address: [address] [place] [address] Performed By: #### L [id number] ####[facility] LABIA [id number] [place] [address] [place] MCHC (RBC) [Mass/Vol] 34.2 g/dL Normal 30.5-36.0 [facility] Comment on above: Order Comment: Speci men Type: BLOOD SPECIMENOrdering Facility: [facility] Address: [address] [place] [address] Performed By: #### L [id number] ####[facility] LABIA [id number] [place] [address] [place] MCV (RBC) [Entitic vol] 89.5 fL Normal 80.0-100.0 [facility] Comment on above: Order Comment: Speci men Type: BLOOD SPECIMENOrdering Facility: [facility] Address: [address] [place] [address] Performed By: #### L [id number] ####[facility]PITALIA [id number] [place] [address] [place] RBC (Bld) [#/Vol] 4.67 10*6/uL Normal 3.90-5.20 [facility] Comment on above: Order Comment: Speci men Type: BLOOD SPECIMENOrdering Facility: [facility] Address: [address] [place] [address] Performed By: #### L [id number] ####[facility]ITAL[facility] [id number] [place] [address] [place] RUBELLA IGG ANTIBODYon 01-24 RUBELLA IGG AB, QUAL Positive Normal Positive [facility] Comment on above: Order Comment: Speci men Type: BLOOD SPECIMENOrdering Facility: [facility] Address: [address] [place] [address] Result Comment: The result suggests recent or past exposure to Rubella virus or history of Rubella vaccination. Positive result may also be seen due to presence of passively-transferred antibodies. Please correlate with patient's history. Performed By: #### R UBIGG ####[facility] [id number] [place] [address] [place] Reagin and Treponema pallidu m IgG and IgM [Interp]on 01-24-2025 T. pallidum IgG+IgM IA Ql (S) Non-Reactive Normal Nonreactive [facility] Comment on above: Order Comment: Speci men Type: BLOOD SPECIMENOrdering Facility: [facility] Address: [address] [place] [address] Performed By: #### 5 195-3, 60535-9, 23238-3 ####[facility] LABCLIA [id number] [place] [address] [place] Reagin+T pallidum IgG+IgM Se rPl-Impon 01-24-2025 Reagin and Treponema pallidum IgG and IgM [Interp] Cannot exclude recent Treponemal infection if specimen collected within 7-10 days after appearance of suspect lesions or 2-3 weeks after an exposure. Clinical correlation is required. Normal [facility] Comment on above: Order Comment: Speci men Type: BLOOD SPECIMENOrdering Facility: [facility] Address: [address] [place] [address] Performed By: #### 5 195-3, 16098-4, 84858-1 ####[facility] LABCLIA [id number] [place] [address] [place] TYPE + SCREEN PRENATALon ABO B Normal [facility] Comment on above: Order Comment: Speci men Type: BLOOD SPECIMENOrdering Facility: [facility] Address: [address] [place] [address] Performed By: #### T SPN ####[facility] BANKCLIA [id number] [place] [address] [place] Rh Nom (Bld) Positive Normal [facility] Comment on above: Order Comment: Speci men Type: BLOOD SPECIMENOrdering Facility: [facility] Address: [address] [place] [address] Performed By: #### T SPN ####[facility] BLOOD BANKCLIA [id number] [place] [address] [place] TYPE AND SCREEN EXPIRATION 01/27/2025 22:59 Normal [facility] Comment on above: Order Comment: Speci men Type: BLOOD SPECIMENOrdering Facility: [facility] Address: [address] [place] [address] Performed By: #### T SPN ####[facility] BLOOD BANKCLIA [id number] [place] [address] [id number] [place] CNPNon 01-22-2025 CNPN Telephone (OBGYWM) NATALIE SEXTON ([id number]) 1995 F Date Time Provider Department 01/22/25 PATRICIA NELSON OBGYWHeladio During your visit today, we recorded the following information about you: Brenna Deras MA 01/22/2025 3:23 PM Signed Contacted patient by phone with phone number listed in chart. Patient was unable to complete the new ob intake because she was waiting for a phone call. Patient stated she will attempt to call back tomorrow 01/23/25. Patient was advised if she is unable to reach a person over the phone, to come to her appointment 30 minutes prior to her scheduled time.DEBBIE Arambula Trisha, RN 01/23/2025 2:12 PM Signed Patient called back and Brenna was not available. She is available only until 3pm and then is in meetings until 8 tonight. She is aware to come in 30 minutes early if she does not speak to her today. Fawn Boston RN Allergies As of Date: 01/22/2025 (No Known Allergies) Date Reviewed: 12/13/2024 Reviewed by: Elvia Mckeon MD - Fully Assessed Problem List As Of Date 01/22/2025 Noted Resolved ASCUS with positive high risk HPV cervical [R87*12/13/2024 Encounter Status:Closed by FAWN BOSTON on 01/23/25 Normal [facility] CNOVon 12-13-2024 CNOV Office Visit (OBGYWM ) NATALIE SEXTON ([id number]) 1995 F Date Time Provider Department 12/13/24 10:50 AM ELVIA MCKEON OBGYWHeladio During your visit today, we recorded the following information about you: Blood pressure Weight Last Period 116/74 64.7 kg 11/21/24 Elvia Mckeon MD 12/13/2024 11:51 AM Signed 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 Natalie is a 29 year old Female who presents today for a colposcopy. The patient's last pap smear was ASCUS with positive HPV from November 2024. Patient has a history of abnormal pap: No. The patient has had prior treatment: none. test: negative UNIVERSAL PROTOCOL / SAFETY CHECKLIST Procedure to be Performed: Colposcopy with Possible Biopsy Sign In: A Moment of CARE was completed. Personnel directly involved with the procedure wore the appropriate PPE (Personal Protective Equipment). Patient/Surrogate Stated/Verified: PATIENT VERIFIED(optional for EMERGENT procedures): Patient name, Date of , Relevant allergies, and The intended procedure Time Out Communication: Intended patient and procedure match the source documents. Consent documented and matches the intended procedure. Sign Out: SIGN OUT (optional for EMERGENT procedures): No specimen collected. All instruments, equipment, possible retained foreign bodies accounted for. PROCEDURE: EXTERNAL GENITALIA: Normal in appearance without lesions VAGINA: Normal in appearance without lesions CERVIX: Speculum placed in vagina and excellent visualization of cervix achieved. Cervix swabbed x 3 with 3% acetic acid solution. Cervix grossly normal. Squamocolumnar junction visualized. No acetowhite changes, punctations, mosaicism or atypical vasculature noted. BIOPSY: Not done. ECC: not done Procedure Summary: Patient tolerated procedure well and colposcopy was adequate. ASSESSMENT: HPV effect PLAN: Yearly paps MD Julio Mack Amanda, MA 12/13/2024 10:33 AM Signed YOUR RECOVERY It may take a few weeks for your cervix to heal. While your cervix heals, you may have: - Vaginal bleeding (less than a normal menstrual period) - Mild cramping - A brown-black vaginal discharge (similar to coffee grounds) which is a result of the paste used to help stop bleeding from the procedure Do NOT put anything in the vagina for 1 week after your colposcopy if your doctor does a biopsy of your cervix. This includes sex, tampons, and douches. If you have any discomfort, you may take an over the counter pain medication (motrin, advil, ibuprofen, tylenol, etc). If this does not relieve your discomfort, contact your doctor's office for a prescription strength pain medication. It is okay to wear a sanitary pad until the discharge and spotting stops. RISKS Although problems seldom occur with colposcopy, there can be some complications. You may feel faint during and shortly after the procedure as well as have some bleeding and vaginal discharge after the procedure. There is also a risk of infection after the procedure. These complications are rare and can be easily treated. You should contact you doctor is you have any of the following: - Heavy bleeding (more than your normal period) - Bleeding with clots - Severe abdominal pain - Fever (more than 100.4F) - Foul smelling vaginal discharge RESULTS If a biopsy was taken, we will have the results of your biopsy in 1-2 weeks. If you do not hear the results of your biopsy after 2 weeks, please contact your physicians office for the results. Depending on the biopsy results, your doctor will determine your follow up plan which may include further testing or treatments. STAYING HEALTHY After the procedure, you will need to see your doctor for follow up visits during the year. At these visits your doctor will check the health of your cervix with a pap smear. After three normal pap smears, your doctor will allow you to return to having exams once a year. If you have another abnormal pap smear, you may need closer follow up for longer or you may need additional treatment. By making a few lifestyle changes after the procedure, you can help protect the health of your cervix: - Have regular pelvic exams and pap smears as ordered by your doctor. - Stop smoking as smoking increases your risk of developing a cancer of the cervix - If you have more than one sexual partner, limit your number of partners and use condoms to reduce your risks of STDs. If you have any additional questions, please contact your doctor's office. Referring Provider: RAEGAN STANFORD [[id number]] Allergies As of Date: 12/13/2024 (No Known Allergies) Date Reviewed: 12/13/2024 Reviewed by: Elvia Mckeon MD - Fully Assessed Reason for Visit: Colposcopy [1551] Primary Visit Diagnosis:ASCUS with positive high risk HPV cervical [R87.610, R87.810] Order(s): (more content not included)... Normal [facility] UA DIP,URINE HCG (POC)on Beta HCG ( test) Ql (U) Negative Negative [facility] Comment on above: Location:[facility], [address] [place], [address] Irrigator (POCT) Internal QC [facility] Location:[facility], [address], [place], [address] [facility] POINT OF CARE [facility] Tory 12-06-2024 DILSHAD Telephone (OBGYWM) NATALIE SEXTON ([id number]) 1995 F Date Time Provider Department 12/06/24 RAEGAN STANFORD OBGYWM During your visit today, we recorded the following information about you: Raegan Stanford APRN.JOSE CARLOS 12/06/2024 11:32 AM Signed Pap ASCUS and HPV+, she will need a colp. Order filed. Raegan Stanford APRN.Charlotte Decker, RN 12/06/2024 11:37 AM Signed Left message to call office. HEATHER Hernandez Tara, RN 12/06/2024 12:47 PM Signed Pt notified and appt scheduled. Mychart message sent with HPV educational material per Pt request. Vega Howard RN Allergies As of Date: 12/06/2024 (No Known Allergies) Date Reviewed: 11/29/2024 Reviewed by: Puja Davenport APRN.RN HEART - Fully Assessed Reason for Visit: Results [95] Abnormal Pap [273] Primary Visit Diagnosis:ASCUS with positive high risk HPV cervical [R87.610, R87.810] Order(s):COLPOSCOPY [[id number]] Order #: [id number] Problem List As Of Date: 12/06/2024 (None) Encounter Status:Closed by VEGA HOWARD on 12/06/24 Normal [facility] 25(OH)D3 SerPl-ncon 2024 25-hydroxyvitamin D3 [Mass/Vol] 31.2 ng/mL Normal 31.0-80.0 [facility] Comment on above: Order Comment: Speci men Type: BLOOD SPECIMENOrdering Facility: [facility] Address: [address] [place] [address] Result Comment: Clas sification of 25 [place] Vitamin D status: Deficiency/Insufficiency: < or = 30 ng/ml. Sufficiency/Optimal Levels: 31-80 ng/mL Toxicity: > 100 ng/mL. Test performed by chemiluminescent immunoassay. 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 Natalie is a 29 year old who presents for an annual gynecologic exam without complaints. Trying for . 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 [employer] Department History Comments: Sexual Activity: Yes; Male Contraception: None Menstrual Tracking History Flowsheet Row Office Visit from 11/21/2024 in OB/Gynecology Period Cycle (Days) 28 Period Duration (Days) 5 Menstrual Flow Moderate PAST MEDICAL HISTORY Diagnosis Date NEGATIVE MEDICAL HISTORY PAST SURGICAL HISTORY Procedure Laterality Date PAST SURGICAL HISTORY OF Right 2010 cornea transplant ( partial) FAMILY HISTORY Problem Relation Age of Onset Cervical Cancer Mother Full hysterectomy Breast Cancer Maternal Grandmother treated with pills SOCIAL HISTORY Social History Tobacco Use Smoking status: Never Smokeless tobacco: Never Vaping Use Vaping status: Never Used Substance Use Topics Alcohol use: Yes Comment: socially Drug use: Never REVIEW OF SYSTEMS Abdomen: No abdominal pain, nausea, vomiting, diarrhea, or constipation. No bloating, early satiety, indigestion, or increased flatulence. Bladder: No dysuria, gross hematuria, urinary frequency, urinary urgency, or incontinence. Breast: No breast lumps, nipple d/c, overlying skin changes, redness or skin retraction. Allergies and current medication updated:Yes SENSITIVE EXAM: The sensitive examination was discussed with the Patient or Patient's Authorized Grievance And Appeals Specialist. As applicable, any other physician, advance practice provider, medical student, or other health professional student that will be observing or involved in the sensitive examination for educational or training purposes was discussed with the Patient or Authorized Grievance And Appeals Specialist. The Patient or Authorized Grievance And Appeals Specialist has agreed to proceed with the sensitive examination. (Sensitive examination includes inspection and/or palpation of the breasts, pelvis, prostate and anorectal regions). EXAM: BP 110/62 Ht 5' 4 (1.63m) Wt 144 lb (65.3kg) LMP 10/21/2024 BMI 24.71 kg/(m2). GENERAL: pleasant, female in no apparent distress HEENT: Normocephalic, atraumatic, mucus membranes moist, and no lesions NECK: Supple, full range of motion, no adenopathy, and thyroid normal DERMATOLOGY: Normal, without lesions, non-icteric, and non-hirsute BREAST: soft, non-tender, symmetric, no dominant mass, normal nipple-areolar complex, no lymphadenopathy, and no nipple discharge CHEST: Normal inspiratory effort ABDOMEN: soft, non-tender, and no masses PELVIC: external genitalia normal, normal Bartholin's glands, urethra, Reid's glands, no vulvar lesions, no cervical lesions, good vaginal support, physiologic discharge present, normal appearing perineal body and perianal region BIMANUAL: uterus normal size, shape and consistency, no adnexal masses, and non-tender RECTOVAGINAL: deferred. NEURO: alert and oriented x3,exam grossly non-focal EXTREMITIES: normal ASSESSMENT/PLAN: 1) Health maintenance: Pap done with reflex HPV. Mammogram starting age 40. Calcium/Vitamin D supplementation information provided. HPV vaccine: completed series 2) Contraception: none. Contraceptive options reviewed and information provided. 3) STD screening: Declined STD check. 4) Follow up one year or sooner as needed Desire for - ICD9: V26.9, ICD10: Z31.9 - Continue vitamin - VITAMIN D 25 HYDROXY - VARICELLA ZOSTER IGG - RUBELLA IGG ANTIBODY - THYROID STIMULATING HORMONE - Discussed carrier screening - wants to check with insurance Puja Davenport APRN.RN HEART Allergies As of Date: 11/29/2024 (No Known Allergies) Date Reviewed: 11/29/2024 Reviewed by: Puja Davenport APRN.CNP - Fully Assessed Reason for Visit: Well Woman [1463] Primary Visit Diagnosis:Encounter for gynecological examination (general) (routine) without abnormal findings [Z01.419] Other Visit Diagnoses:Screening for cervical cancer [Z12.4] Desire for [Z31.9] Screening for thyroid disorder [Z13.29] Encounter for preconception consultation [Z31.69] E (more content not included)... Normal [facility] HIGH RISK HUMAN PAPILLOMA ROLANDO (HPV), PCR FOR DETECTION AND GENOTYPINGon 11-29-2024 HPV 16 Ag Ql (Unsp spec) Not detected Normal Not detected [facility] Comment on above: Order Comment: Speci men Type: FLUID SPECIMENOrdering Facility: [facility] Address: [address] [place] [address] Performed By: #### H PVHRT ####[facility] LABCLIA [id number] [address] STATES OF [facility] HPV 18 Ag Ql (Unsp spec) Not detected Normal Not detected [facility] Comment on above: Order Comment: Speci men Type: FLUID SPECIMENOrdering Facility: [facility] Address: [address] [place] [address] Performed By: #### H PVHRT ####[facility] LABCLIA [id number] [address] [place] HPV 31+33+35+39+45+51+52 +56+58+59+66+68 DNA ANJUM+probe Ql (Cvx) Detected Abnormal Not detected [facility] Comment on above: Order Comment: Speci men Type: FLUID SPECIMENOrdering Facility: [facility] Address: [address] [place] [address] Result Comment: High Risk HPV Other Type includes HPV types 31, 33, 35, 39, 45, 51, 52, 56, 58, 59, 66 and 68. Performed By: #### H PVHRT ####[facility] LABCLIA [id number] [place] [address] [place] PAP TESTon 11-29-2024 ADEQUACY Satisfactory for interpretation. Normal [facility] Comment on above: Order Comment: Speci men Type: FLUID SPECIMENOrdering Facility: [facility] Address: [address] [place] [address] Performed By: #### L [id number] ####[facility]ORY[facility] [id number] [address] STATES OF [facility] LABCLIA [id number] [address] [address] [place] CASE REPORT Normal [facility] Comment on above: Order Comment: Speci men Type: FLUID SPECIMENOrdering Facility: [facility] Address: [address] [place] [address] Result Comment: Gyne cologic Cytology Report Case: [id number] Authorizing Provider: Puja Davenport APRN.RN HEART Collected: 11/29/2024 01:55 PM Ordering Location: OB/Gynecology Received: 11/29/2024 02:19 PM First Screen: Binh, Lillian, CT, ASCP Pathologist: Emigdio Silva MD Specimen: Pap Test, ThinPrep, Cervix Performed By: #### L [id number] ####[facility] LABORATORYCLIA [id number] [place] [address] [place] [facility] LABCLIA [id number] [place] [address] [place] CLINICAL HISTORY, CYTOLOGY, AGILE JAVA DEVELOPER Routine Exam Normal [facility] Comment on above: Order Comment: Speci men Type: FLUID SPECIMENOrdering Facility: [facility] Address: [address] [place] [address] Performed By: #### L [id number] ####[facility] LABORATORYCLIA [id number] [place] [address] [place] [facility] LABCLIA [id number] [place] [address] [place] FINAL PERFORMING LAB Normal [facility] Comment on above: Order Comment: Speci men Type: FLUID SPECIMENOrdering Facility: [facility] Address: [address] [id number] Result Comment: Tech nical component, clearing hand screening performed at [facility], [address] [place] [address] CLIA# [id number] Diagnostic interpretation performed at [facility], [address] [place] [address] CLIA# [id number] Document Control Assistant: Emigdio Silva M.D. Performed By: #### L [id number] ####[facility]ATORYCLIA [id number] [place] [id number] [facility] LABCLIA [id number] [address] STATES OF [place] INTERPRETATION, CYTOLOGY, AGILE JAVA DEVELOPER Abnormal [facility] Comment on above: Order Comment: Speci men Type: FLUID SPECIMENOrdering Facility: [facility] Address: [address] [place] [address] Result Comment: Atyp ical squamous cells of undetermined significance (ASC-US). Performed By: #### L [id number] ####[facility]ORY[facility] [id number] [place] [id number] [facility] LABCLIA [id number] [address] OF [facility] 10/21/2024 Normal [facility] Comment on above: Order Comment: Speci men Type: FLUID SPECIMENOrdering Facility: [facility] Address: [address] [place] [address] Performed By: #### L [id number] ####[facility]ORYCL[facility] [id number] [place] [id number] [facility] LABCLIA [id number] [address] STATES OF [place] PAP DISCLAIMER COMMENT The Pap Smear is a screening test for cervical cancer. False negative results occur with all screening tests, emphasizing the need for rescreening at recommended intervals, and clinical correlation. Normal [facility] Comment on above: Order Comment: Speci men Type: FLUID SPECIMENOrdering Facility: [facility] Address: [address] [place] [address] Performed By: #### L [id number] ####[facility]ORYCLIA [id number] [address] LABCLIA [id number] [place] [address] [place] PAP GENERAL CATEGORIZATION Epithelial Cell Abnormality Normal [facility] Comment on above: Order Comment: Daniela saleem Type: FLUID SPECIMENOrdering Facility: [facility] Address: [address] [place] [address] Performed By: #### L [id number] ####[facility]ORYCLIA [id number] [address] LABCLIA [id number] [place] [address] [place] RUBELLA IGG ANTIBODYon 11-29 RUBELLA IGG AB, QUAL Positive Normal Positive [facility] Comment on above: Order Comment: Daniela saleem Type: BLOOD SPECIMENOrdering Facility: [facility] Address: [address] [place] [address] Result Comment: The result suggests recent or past exposure to Rubella virus or history of Rubella vaccination. Positive result may also be seen due to presence of passively-transferred antibodies. Please correlate with patient's history. Performed By: #### 1 989-3, RUBIGG, [id number] ####[facility] LABCLIA [id number] [place] [address] [place] TSH SerPl-aCncon 11-29-2024 TSH Qn 1.240 m[IU]/L Normal 0.270-4.200 [facility] Comment on above: Order Comment: Daniela saleem Type: BLOOD SPECIMENOrdering Facility: [facility] Address: [address] [place] [address] Result Comment: If t he patient is , TSH reference range varies by gestational period: First Trimester (weeks 9-12): 0.180-2.990 mIU/L Second Trimester: 0.110-3.980 mIU/L Third Trimester: 0.480-4.710 mIU/L Otto Baez et al. A Practical Approach for the Verifications and Determination of Site- and Trimester-Specific Reference Intervals for Thyroid Function tests in . Thyroid, 2019:29:3:412-420. Leighton Otero, et al. 2017 Guidelines of the [place] Thy[employer] for the Diagnosis and Management of Thyroid Disease during and the . Thyroid, 2017:27:3:315-389. Performed By: #### 3 016-3 ####[facility] LABCLIA [id number] [place] [address] [place] VARICELLA ZOSTER IGGon 11-29 VARICELLA ZOSTER IGG, QUAL Positive Normal Positive [facility] Comment on above: Order Comment: Speci men Type: BLOOD SPECIMENOrdering Facility: [facility] Address: [address] [place] [address] Result Comment: The result suggests recent or past exposure to Varicella-Zoster virus or chickenpox vaccination or zoster vaccination. Positive result may also be seen due to presence of passively-transferred antibodies. Please correlate with patient's history. Performed By: #### 1 989-3, ENRIQUE, VZVG2 ####[facility] LABCLIA [id number] [address] [place] CNOVon 11-21-2024 CNOV Office Visit (OBGYWM ) NATALIE SEXTON ([id number]) 1995 F Date Time Provider Department 11/21/24 4:00 PM ASHLEE WHITNEY OBGYWM During your visit today, we recorded the following information about you: Blood pressure Weight Last Period 114/70 64.9 kg 10/21/24 Ashlee Whitney APRN.CNM 11/21/2024 4:03 PM Signed Natalie Sexton is a 29 year old female who presents for problem visit of spotting in . LMP was 10/21/24. She reports that last Monday she took HPT that resulted positive. She began bleeding last night and is bleeding like a period today. She stopped OCP last August and has actively been trying for with . OB History No obstetric history on file. 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 No pertinent past medical history. History reviewed. No pertinent surgical history. FAMILY HISTORY Problem Relation Age of Onset Cervical Cancer Mother Full hysterectomy Breast Cancer Maternal Grandmother treated with pills Social History Tobacco Use Smoking status: Never Smokeless tobacco: Never Substance Use Topics Alcohol use: Yes Comment: socially Drug use: Never No current outpatient medications on file. No current facility-administered medications for this visit. Allergies As of Date: 11/21/2024 (No Known Allergies) Fully Assessed 11/21/2024 REVIEW OF SYSTEMS Abdomen: No bloating, early satiety, indigestion, or increased flatulence. No abdominal pain, nausea, vomiting, diarrhea, or constipation. Bladder: No dysuria, gross hematuria, urinary frequency, urinary urgency, or incontinence. Breast: No breast lumps, nipple d/c, overlying skin changes, redness or skin retraction. Expanded ROS: N/A Allergies and current medication updated:Yes SENSITIVE EXAM: Sensitive exam not performed. EXAM: BP 114/70 Wt 143 lb (64.9kg) LMP 10/21/2024 GENERAL: pleasant and emotional, female in no apparent distress HEENT: Normocephalic and atraumatic NECK: Supple and full range of motion DERMATOLOGY: Normal and without lesions BREAST: deferred CHEST: Normal inspiratory effort ABDOMEN: Deferred PELVIC: deferred BIMANUAL: deferred NEURO: alert and oriented x3,exam grossly non-focal EXTREMITIES: normal ASSESSMENT AND PLAN: Assessment AND Plan Missed menses Orders: UA DIP,URINE HCG (POC) HCG QUANTITATIVE; Standing - Urine HCG is NEGATIVE - Reviewed findings with patient and discussed this is more than likely her menses starting - Support provided - Tearful due to desire for - Taking vitamins - Stated needs an annual exam with PAP - RTO as needed and for annual Ashlee Plotts, SUPERINTENDENT DISTRIBUTION.CNM Allergies As of Date: 11/21/2024 (No Known Allergies) Date Reviewed: 11/21/2024 Reviewed by: Ashlee Whitney APRN.CNM - Fully Assessed Reason for Visit: Missed Menses [Other] Primary Visit Diagnosis:Missed menses [N92.6] Order(s):UA DIP,URINE HCG (POC) [[id number]] Order #: [id number]. #:[id number] Problem List As Of Date: 11/21/2024 (None) Encounter Status:Closed by ASHLEE WHITNEY on 11/21/24 [facility] CNPNon 11-21-2024 CNPN Telephone (OBGYWM) NATALIE SEXTON ([id number]) 1995 F Date Time Provider Department 11/21/24 SANDOVAL ALVARADO During your visit today, we recorded the following information about you: Vega Howard RN 11/21/2024 9:49 AM Signed LMP 10/21/24. [facility] OB appt scheduled for 12/13/24. Pt states for the past week she has been crampy and last night noticed light pink vaginal bleeding. This morning woke up with blood on her paints and in the toilet and clots noted. States she placed a tampon about an hour ago. Advised Pt to take tampon out and place a pad to better monitor the bleeding. Advised Pt that if her bleeding becomes heavy to where she is saturating a pad (front to back, side to side) in one hour or less for two hours or more, she develops shortness of breath, chest pain, dizziness, or fatigue to please call the office or go to the nearest Emergency Room. HCG levels pending if appropriate. Please advise since Pt has not been seen in our office. HEATHER Trevizo Karmon, MD 11/21/2024 12:38 PM Signed I can't order labs on a patient we have never seen. Please offer her a visit at 4pm today with CP so that labs can be ordered. MD Reynaldo Loya Tara, RN 11/21/2024 1:18 PM Signed Pt notified and appt made today with CP at 4pm. Vega Howard RN Allergies As of Date: 11/21/2024 (Not on File) Date Reviewed: Never Reviewed Reason for Visit: Early OB bleeding [Other] Primary Visit Diagnosis:Bleeding in early [O20.9] Problem List As Of Date: 11/21/2024 (None) Encounter Status:Closed by VEGA HOWARD on 11/21/24 Normal [facility] UA DIP,URINE HCG (POC)on Beta HCG ( test) Ql (U) Negative Negative [facility] Comment on above: Location:[facility], [address] [place] [address], [place], [address] Irrigator (POCT) Internal QC [facility] Location:[facility], [address] [facility], [facility] [id number] [place] [address] POINT OF CARE [facility] CULTURE URINEon 01-03-2024 CULTURE URINE COLONY COUNT = ZERO COLONY FORMING UNITS, ML ISOL NO GROWTH OBSERVED AFTER 2 DAYS Normal [facility] Comment on above: Performed By: #### U DOMINGA #### [facility] [address] [place] [address] [employer] Specialist - Nell SANTOS [id number] Vital Signs Date Time Vital Sign Value Performing Clinician Juana villatoro 08-01-2025 10:20-0400 Body mass index (BMI) [Ratio] 30.04 kg/m2 Elvia Mckeon MD Work Phone: [facility] 08-01-2025 10:20-0400 Body weight 79.38 kg Elvia Mckeon MD Work Phone: [facility] 08-01-2025 10:20-0400 Diastolic blood pressure 72 mm[Hg] Elvia Mckeon MD Work Phone: [facility] 08-01-2025 10:20-0400 Systolic blood pressure 112 mm[Hg] Elvia Mckeon MD Work Phone: [facility] 07-22-2025 10:45-0400 Body mass index (BMI) [Ratio] 29.35 kg/m2 Erik Sandoval MD Work Phone: [facility] 07-22-2025 10:45-0400 Body weight 77.56 kg Erik Sandoval MD Work Phone: [facility] 07-22-2025 10:45-0400 Diastolic blood pressure 62 mm[Hg] Erik Sandoval MD Work Phone: [facility] 07-22-2025 10:45-0400 Systolic blood pressure 104 mm[Hg] Erik Sandoval MD Work Phone: [facility] 07-07-2025 08:18-0400 Body mass index (BMI) [Ratio] 28.56 kg/m2 James Amato MD Work Phone: [facility] 07-07-2025 08:18-0400 Body weight 75.48 kg James Amato MD Work Phone: [facility] 07-07-2025 08:18-0400 Diastolic blood pressure 70 mm[Hg] James Amato MD Work Phone: [facility] 07-07-2025 08:18-0400 Systolic blood pressure 120 mm[Hg] James Amato MD Work Phone: [facility] 06-20-2025 10:36-0400 Body mass index (BMI) [Ratio] 27.81 kg/m2 Patricia Nelson APRN.CNM Work Phone: [facility] 06-20-2025 10:36-0400 Body weight 73.48 kg Patricia Nelson APRN.CNM Work Phone: [facility] 06-20-2025 10:36-0400 Diastolic blood pressure 62 mm[Hg] Patricia Nelson APRN.CNM Work Phone: [facility] 06-20-2025 10:36-0400 Systolic blood pressure 112 mm[Hg] Patricia Omar SUPERINTENDENT DISTRIBUTION.CNM Work Phone: [facility] 06-06-2025 09:05-0400 Body mass index (BMI) [Ratio] 27.81 kg/m2 Elvia Mckeon MD Work Phone: [facility] 06-06-2025 09:05-0400 Body weight 73.48 kg Elvia Mckeon MD Work Phone: [facility] 06-06-2025 09:05-0400 Diastolic blood pressure 60 mm[Hg] Elvia Mckeon MD Work Phone: [facility] 06-06-2025 09:05-0400 Systolic blood pressure 110 mm[Hg] Elvia Mckeon MD Work Phone: [facility] 05-09-2025 09:31-0400 Body mass index (BMI) [Ratio] 27.12 kg/m2 Ashlee Plotlouann SUPERINTENDENT DISTRIBUTION.CNM Work Phone: [facility] 05-09-2025 09:31-0400 Body weight 71.67 kg Ashlee Plotts SUPERINTENDENT DISTRIBUTION.CNM Work Phone: [facility] 05-09-2025 09:31-0400 Diastolic blood pressure 68 mm[Hg] Ashlee Plotts SUPERINTENDENT DISTRIBUTION.CNM Work Phone: [facility] 05-09-2025 09:31-0400 Systolic blood pressure 116 mm[Hg] Ashlee Plotts SUPERINTENDENT DISTRIBUTION.CNM Work Phone: [facility] 03-21-2025 10:23-0400 Body mass index (BMI) [Ratio] 25.23 kg/m2 Ashlee Plotts SUPERINTENDENT DISTRIBUTION.CNM Work Phone: [facility] 03-21-2025 10:23-0400 Body weight 66.68 kg Ashlee Plotts SUPERINTENDENT DISTRIBUTION.CNM Work Phone: [facility] 03-21-2025 10:23-0400 Diastolic blood pressure 72 mm[Hg] Ashlee Plotts SUPERINTENDENT DISTRIBUTION.CNM Work Phone: [facility] 03-21-2025 10:23-0400 Systolic blood pressure 110 mm[Hg] Ashlee Whitney SUPERINTENDENT DISTRIBUTION.CNM Work Phone: [facility] 02-24-2025 10:41-0400 Body mass index (BMI) [Ratio] 24.55 kg/m2 Patricia Nelson SUPERINTENDENT DISTRIBUTION.CNM Work Phone: [facility] 02-24-2025 10:41-0400 Body weight 64.86 kg Patricia Nelson SUPERINTENDENT DISTRIBUTION.CNM Work Phone: [facility] 02-24-2025 10:41-0400 Diastolic blood pressure 66 mm[Hg] Patricia Nelson SUPERINTENDENT DISTRIBUTION.CNM Work Phone: [facility] 02-24-2025 10:41-0400 Systolic blood pressure 118 mm[Hg] Patricia Nelson SUPERINTENDENT DISTRIBUTION.CNM Work Phone: [facility] 01-24-2025 12:49-0500 Body height 162.6 cm Patricia Nelson SUPERINTENDENT DISTRIBUTION.CNM Work Phone: [facility] 01-24-2025 12:49-0500 Body mass index (BMI) [Ratio] 24.37 kg/m2 Patricia Nelson SUPERINTENDENT DISTRIBUTION.CNM Work Phone: [facility] 01-24-2025 12:49-0500 Body weight 64.41 kg Patricia Nelson SUPERINTENDENT DISTRIBUTION.CNM Work Phone: [facility] 01-24-2025 12:49-0500 Diastolic blood pressure 76 mm[Hg] Patricia Nelson SUPERINTENDENT DISTRIBUTION.CNM Work Phone: [facility] 01-24-2025 12:49-0500 Systolic blood pressure 114 mm[Hg] Patricia Nelson SUPERINTENDENT DISTRIBUTION.CNM Work Phone: [facility] 12-13-2024 10:42-0500 Body mass index (BMI) [Ratio] 24.48 kg/m2 Elvia Mckeon MD Work Phone: [facility] 12-13-2024 10:42-0500 Body weight 64.68 kg Elvia Mckeon MD Work Phone: [facility] 12-13-2024 10:42-0500 Diastolic blood pressure 74 mm[Hg] Elvia Mckeon MD Work Phone: [facility] 12-13-2024 10:42-0500 Systolic blood pressure 116 mm[Hg] Elvia Mckeon MD Work Phone: [facility] 11-29-2024 13:30-0500 Body height 162.6 cm Puja Haury SUPERINTENDENT DISTRIBUTION.RN HEART Work Phone: [facility] 11-29-2024 13:30-0500 Body mass index (BMI) [Ratio] 24.72 kg/m2 Puja Haury SUPERINTENDENT DISTRIBUTION.RN HEART Work Phone: [facility] 11-29-2024 13:30-0500 Body weight 65.32 kg Puja Haury SUPERINTENDENT DISTRIBUTION.RN HEART Work Phone: [facility] 11-29-2024 13:30-0500 Diastolic blood pressure 62 mm[Hg] Puja Haury SUPERINTENDENT DISTRIBUTION.RN HEART Work Phone: [facility] 11-29-2024 13:30-0500 Systolic blood pressure 110 mm[Hg] Puja Haury SUPERINTENDENT DISTRIBUTION.RN HEART Work Phone: [facility] 11-21-2024 15:44-0500 Body weight 64.86 kg Ashlee Plotts SUPERINTENDENT DISTRIBUTION.CNM Work Phone: [facility] 11-21-2024 15:44-0500 Diastolic blood pressure 70 mm[Hg] Ashlee Plotts SUPERINTENDENT DISTRIBUTION.CNM Work Phone: [facility] 11-21-2024 15:44-0500 Systolic blood pressure 114 mm[Hg] Ashlee Plotts SUPERINTENDENT DISTRIBUTION.CNM Work Phone: [facility] Encounters Encounter Date Encounter Type Care Provider Facility Start: 08-28-2025 [facility] Start: 08-08-2025 End: 08-08-2025 ambulatory PATRICIA NELSON Facility:[facility] Start: 08-01-2025 End: 08-01-2025 Patient encounter procedure Elvia Mckeon MD Work Phone: OB/Gynecology Comment on above: Encounter for superv ision of other normal in third trimester (HCC) (Primary Dx); 36 weeks gestation of (HCC) Start: 08-01-2025 End: 08-01-2025 ambulatory ELVIA MCKEON Facility:[facility] Start: 07-22-2025 End: 07-22-2025 Patient encounter procedure Erik Sandoval MD Work Phone: OB/Gynecology Comment on above: 34 weeks gestation o f (HCC) (Primary Dx); Encounter for supervision of other normal in third trimester (HCC); Supervision of other high risk pregnancies, first trimester (HCC) Start: 07-22-2025 End: 07-22-2025 ambulatory ERIK SANDOVAL Facility:[facility] Start: 07-07-2025 End: 07-07-2025 Patient encounter procedure James Amato MD Work Phone: OB/Gynecology Comment on above: Supervision of high risk in second trimester (HCC) (Primary Dx); 32 weeks gestation of (HCC); Abnormal glucose complicating (HCC) Start: 07-07-2025 End: 07-07-2025 ambulatory JAMES AMATO Facility:[facility] Start: 06-20-2025 End: 06-20-2025 Patient encounter procedure Ptaricia Nelson APRN.CNM Work Phone: OB/Gynecology Comment on above: Supervision of high risk in second trimester (HCC) (Primary Dx); 30 weeks gestation of (HCC); Elevated glucose tolerance test Start: 06-20-2025 End: 06-20-2025 ambulatory PATRICIA NELSON Facility:[facility] Start: 06-13-2025 End: 06-13-2025 ambulatory PUJA DAVENPORT Facility:[facility] Start: 06-06-2025 End: 06-06-2025 Patient encounter procedure Elvia Mckeon MD Work Phone: OB/Gynecology Comment on above: Supervision of high risk in second trimester (HCC) (Primary Dx); 28 weeks gestation of (HCC) Start: 06-06-2025 End: 06-06-2025 ambulatory ELVIA LETICIA Facility:[facility] Start: 05-09-2025 End: 05-09-2025 Patient encounter procedure Ashlee Reggielouann SUPERINTENDENT DISTRIBUTION.CNM Work Phone: OB/Gynecology Comment on above: 24 weeks gestation o f (HCC) (Primary Dx); Supervision of high risk in second trimester (HCC); Screening for diabetes mellitus Start: 05-09-2025 End: 05-09-2025 ambulatory ASHLEE WHITNEY Facility:[facility] Start: 04-23-2025 End: 04-24-2025 Telephone encounter Ashlee Whiteny APRN.CNM Work Phone: OB/Gynecology Comment on above: Breast Pump Start: 04-11-2025 End: 04-11-2025 [facility] PATRICIA OMAR Facility:[facility] Start: 03-21-2025 End: 03-21-2025 ambulatory ASHLEE REGGIELOUANN Facility:[facility] Start: 03-21-2025 End: 03-21-2025 Patient encounter procedure Ashlee Whitney SUPERINTENDENT DISTRIBUTION.CNM Work Phone: OB/Gynecology Comment on above: 17 weeks gestation o f (HCC) (Primary Dx); Supervision of high risk in second trimester (HCC) Start: 02-24-2025 End: 02-24-2025 [facility] Facility:[facility] Start: 02-24-2025 End: 02-24-2025 Patient encounter procedure Whi [employer] 1 Health Administrator [facility]aternal [facility] Comment on above: Encounter for antena doug screening for malformation using ultrasound (HCC) (Primary Dx); 13 weeks gestation of (HCC); Encounter for (NT) nuchal translucency scan ([facility]) Supervision of high risk in second trimester (HCC) (Primary Dx); 13 weeks gestation of (HCC) Start: 01-27-2025 End: 03-29-2025 Follow-up encounter Erik Sandoval MD Work Phone: OB/Gynecology Start: 01-24-2025 End: 01-24-2025 ambulatory PATRICIA OMAR Facility:[facility] Start: 01-24-2025 End: 01-24-2025 Patient encounter procedure Patricia Omar HARDING.CNM Work Phone: OB/Gynecology Comment on above: Supervision of other high risk pregnancies, first trimester (Primary Dx); Encounter for test, result positive; Confirm viability with history of miscarriage, ultrasound; ASCUS with positive high risk HPV cervical Start: 01-22-2025 End: 01-23-2025 Telephone encounter Patricia Omar HARDING.CNM Work Phone: OB/Gynecology Start: 12-13-2024 End: 12-13-2024 ambulatory [facility] Facility:[facility] Start: 12-13-2024 End: 12-13-2024 Patient encounter procedure Elvia Mckeon MD Work Phone: OB/Gynecology Comment on above: ASCUS with positive high risk HPV cervical (Primary Dx) Start: 12-06-2024 End: 12-06-2024 Telephone encounter Raegan Stanford APRN.RN HEART Work Phone: OB/Gynecology Comment on above: Results; Abnormal Pa p Start: 11-29-2024 End: 11-29-2024 ambulatory PUJA DAVENPORT Facility:[facility] Start: 11-29-2024 End: 11-29-2024 Patient encounter procedure Puja Davenport APRN.RN HEART Work Phone: OB/Gynecology Comment on above: Encounter for gyneco logical examination (general) (routine) without abnormal findings (Primary Dx); Screening for cervical cancer; Desire for ; Screening for thyroid disorder; Encounter for preconception consultation; Encounter for vitamin deficiency screening Start: 11-29-2024 End: 11-29-2024 Patient encounter status Puja Davenport APRN.RN HEART Work Phone: [facility] Start: 11-21-2024 End: 11-21-2024 Patient encounter procedure Ashlee Whitney APRN.CNHeladio Work Phone: OB/Gynecology Comment on above: Missed menses (Prima ry Dx) Start: 11-21-2024 End: 11-21-2024 ambulatory ASHLEE WHITNEY Facility:[facility] Start: 11-21-2024 End: 11-21-2024 Telephone encounter Sandoval Alvarado MD Work Phone: OB/Gynecology Comment on above: Early OB bleeding Start: 12-31-2023 End: 12-31-2023 ambulatory NEIGHBARGER CASEY Stephanie NEIGHBLINH SUPERINTENDENT DISTRIBUTION~[phone] Facility:[facility] Procedures Date Procedure Procedure Detail Performing Clinician Start: 08-01-2025 Urnls dip stick/tabl et rgnt non-auto w/o micrscp Elvia Mckeon MD Work Phone: Start: 07-22-2025 Urnls dip stick/tabl et rgnt non-auto w/o micrscp Erik Sandoval MD Work Phone: Start: 02-24-2025 Us preg uterus after 1st trimest 1 gestation Patricia Nelson APRN.CNM Work Phone: Start: 01-24-2025 Antibody screen PATRICIA NELSON Comment on above: Order Comment: Speci men Type: BLOOD SPECIMENOrdering Facility: [facility] Address: [address] [place] [address] Performed By: #### T SPN ####CC MAIN BLOOD BANKCLIA [id number] [place] [address] [place] Start: 01-24-2025 Us uterus l imited 1/> fetuses Patricia Nelson APRN.CNM Work Phone: Start: 12-13-2024 UA DIP,URINE HCG (POC) Elvia Mckeon MD Work Phone: Start: 11-21-2024 UA DIP,URINE HCG (POC) Ashlee Whitney APRN.CNM Work Phone: Plan of Treatment Date Care Activity Detail Author Start: 2071 RSV Vaccine (1 - 1-d ose 75+ series) RSV Vaccine (1 - 1-dose 75+ series) [facility] Start: 12-05-2025 End: 12-05-2025 Patient encounter procedure 12/05/2025 10:15 AM EST Office Visit OB/Gynecology [address] [place] [address] Puja Davenport APRN.RN HEART [address] [place] [address] (Fax) Annual OB/Gynecology Comment on above: Annual Start: 11-29-2025 Screening for malign ant neoplasm of cervix Cervical Cancer Screening [facility] Start: 08-27-2025 End: 08-27-2025 Patient encounter procedure 08/27/2025 9:45 AM EDT Routine Office Visit OB/Gynecology [address] [place] [address] Ashlee Whitney APRN.CNM [address] [place] [address] (Fax) OB OB/Gynecology Comment on above: OB Start: 08-22-2025 End: 08-22-2025 Patient encounter procedure 08/22/2025 11:00 AM EDT Routine Office Visit OB/Gynecology [address] [place] [address] Ashlee Whitney APRN.CNM [address] [place] [address] (Fax) OB OB/Gynecology Comment on above: OB Start: 08-15-2025 End: 08-15-2025 Patient encounter procedure 08/15/2025 10:15 AM EDT Routine Office Visit OB/Gynecology [address] [place] [address] Patricia Nelson APRN.CNM [address] [place] [address] (Fax) OB OB/Gynecology Comment on above: OB Start: 08-08-2025 End: 08-08-2025 Patient encounter procedure OB/Gynecology Comment on above: OB 37 Week Appt Start: 08-01-2025 End: 08-01-2025 Patient encounter procedure 08/01/2025 10:20 AM EDT Routine Office Visit OB/Gynecology [address] [place] [address] Elvia Mckeon MD [address] [place] [address] OB OB/Gynecology Comment on above: OB Start: 07-22-2025 End: 07-22-2025 Patient encounter procedure 07/22/2025 10:40 AM EDT Routine Office Visit OB/Gynecology [address] [place] [address] Erik Sandoval MD [address] [place] [address] OB OB/Gynecology Comment on above: OB Start: 07-21-2025 Influenza vaccination [facility] Start: 07-21-2025 RSV Vaccine (1 - Ris k 1-dose series) RSV Vaccine (1 - Risk 1-dose series) [facility] Start: 07-07-2025 End: 07-07-2025 Patient encounter procedure 07/07/2025 8:30 AM EDT Routine Office Visit OB/Gynecology [address] [place] [address] James Amato MD [address] [place] [address] OB OB/Gynecology Comment on above: OB Start: 06-20-2025 End: 06-20-2025 Patient encounter procedure 06/20/2025 10:30 AM EDT Routine Office Visit OB/Gynecology [address] [place] [address] Patricia Nelson APRN.CN [address] [place] [address] OB OB/Gynecology Comment on above: OB Start: 06-06-2025 End: 06-06-2025 Patient encounter procedure 06/06/2025 9:00 AM EDT Routine Office Visit OB/Gynecology [address] [place] [address] Elvia Mckeon MD [address] [place] [address] OB OB/Gynecology Comment on above: OB Start: 06-06-2025 End: 06-06-2025 ambulatory 06/06/2025 8:45 AM EDT Results Only Rosanna Ambrose[facility] [address] [place] [address] Glucose test [facility] Comment on above: Glucose test Start: 05-09-2025 End: 08-08-2025 ANEMIA REFLEX PANEL ANEMIA REFLEX PANEL Lab Routine 24 weeks gestation of ([facility]) Supervision of high risk in second trimester ([facility]) Expected: 05/09/2025, Expires: 08/08/2025 [facility] Comment on above: Expected: 05/09/2025 , Expires: 08/08/2025 Start: 05-09-2025 End: 05-09-2026 GESTATIONAL GLUCOSE SCREEN, 1-HOUR, 50 GRAM, NON-FASTING GESTATIONAL GLUCOSE SCREEN, 1-HOUR, 50 GRAM, NON-FASTING Lab Routine 24 weeks gestation of ([facility]) Supervision of high risk in second trimester ([facility]) Screening for diabetes mellitus Expected: 05/09/2025, Expires: 05/09/2026 [facility] Work Phone: Comment on above: Expected: 05/09/2025 , Expires: 05/09/2026 Start: 05-09-2025 End: 05-09-2026 SYPHILIS TREPONEMAL W/REFLEX SYPHILIS TREPONEMAL W/REFLEX Lab Routine 24 weeks gestation of ([facility]) Supervision of high risk in second trimester ([facility]) Expected: 05/09/2025, Expires: 05/09/2026 [facility] Comment on above: Expected: 05/09/2025 , Expires: 05/09/2026 Start: 05-09-2025 End: 05-09-2025 Patient encounter procedure 05/09/2025 9:45 AM EDT Routine Office Visit OB/Gynecology [address] [place] [address] Ashlee Whitney APRN.CNM [address] [place] [address] OB OB/Gynecology Comment on above: OB Start: 04-11-2025 End: 04-11-2025 Patient encounter procedure Maternal Medicine Comment on above: Anatomy Anatomy/OB Start: 03-21-2025 End: 03-21-2025 Patient encounter procedure 03/21/2025 10:15 AM EDT Routine Office Visit OB/Gynecology [address] [place] [address] Ashlee Whitney APRN.CNM [address] [place] [address] OB OB/Gynecology Comment on above: OB Start: 02-24-2025 End: 02-24-2025 Patient encounter procedure OB/Gynecology Comment on above: Encounter for pregna ncy test, result positive [Z32.01] Start: 01-24-2025 End: 04-25-2025 ANEMIA REFLEX PANEL [facility] Work Phone: Comment on above: Expected: 01/24/2025 , Expires: 04/25/2025 Start: 01-24-2025 End: 04-25-2025 Hemoglobin A1c in Blood [facility] Comment on above: Expected: 01/24/2025 , Expires: 04/25/2025 Start: 01-24-2025 End: 04-25-2025 HEMOGLOBIN EVALUATION CASCADE [facility] Comment on above: Expected: 01/24/2025 , Expires: 04/25/2025 Start: 01-24-2025 End: 04-25-2025 Hepatitis B virus surface Ag [Presence] in Serum [facility] Comment on above: Expected: 01/24/2025 , Expires: 04/25/2025 Start: 01-24-2025 End: 04-25-2025 Hepatitis C virus Ab [Presence] in Serum [facility] Comment on above: Expected: 01/24/2025 , Expires: 04/25/2025 Start: 01-24-2025 End: 04-25-2025 HIV 1+2 Ab [Presence] in Serum or Plasma by Immunoassay [facility] Comment on above: Expected: 01/24/2025 , Expires: 04/25/2025 Start: 01-24-2025 End: 01-24-2026 OBSTETRIC ULTRASOUND WHI OBSTETRIC ULTRASOUND WHI Anc Imaging Routine Encounter for test, result positive Expected: 01/24/2025, Expires: 01/24/2026 [facility] Comment on above: Expected: 01/24/2025 , Expires: 01/24/2026 Start: 01-24-2025 End: 04-25-2025 RUBELLA IGG ANTIBODY [facility] Comment on above: Expected: 01/24/2025 , Expires: 04/25/2025 Start: 01-24-2025 End: 04-25-2025 SYPHILIS TREPONEMAL W/REFLEX [facility] Comment on above: Expected: 01/24/2025 , Expires: 04/25/2025 Start: 01-24-2025 End: 04-25-2025 TYPE + SCREEN [facility] Comment on above: Expected: 01/24/2025 , Expires: 04/25/2025 Start: 01-24-2025 End: 01-24-2025 Patient encounter procedure 01/24/2025 1:00 PM EST Initial Office Visit OB/Gynecology [address] [place] [address] Patricia Nelson APRN.[facility] [address] [place] [address] OB/Gynecology Comment on above: Start: 12-13-2024 End: 12-13-2024 Patient encounter procedure 12/13/2024 10:50 AM EST Office Visit OB/Gynecology [address] [place] [id number] Elvia Mckeon MD [address] [place] [address] Colposcopy OB/Gynecology Comment on above: Colposcopy Start: 11-29-2024 End: 02-28-2025 25-hydroxyvitamin D3 [Mass/volume] in Serum or Plasma [facility] Work Phone: Comment on above: Expected: 11/29/2024 , Expires: 02/28/2025 Start: 11-29-2024 End: 02-28-2025 RUBELLA IGG ANTIBODY [facility] Comment on above: Expected: 11/29/2024 , Expires: 02/28/2025 Start: 11-29-2024 End: 02-28-2025 Thyrotropin [Units/volume] in Serum or Plasma [facility] Comment on above: Expected: 11/29/2024 , Expires: 02/28/2025 Start: 11-29-2024 End: 02-28-2025 VARICELLA ZOSTER IGG [facility] Comment on above: Expected: 11/29/2024 , Expires: 02/28/2025 Start: 11-29-2024 End: 11-29-2024 Patient encounter procedure 11/29/2024 1:30 PM EST Office Visit OB/Gynecology [address] [place], [place] [id number] Puja Davenport APRN.RN HEART [address] [place] [address] Annual OB/Gynecology Comment on above: Annual Start: 07-21-2024 Covid-19 Vaccine ( season) Covid-19 Vaccine ( season) [facility] Start: 07-21-2024 Influenza vaccination Influenza Vacc ine (#1) [facility] Start: 2023 HPV Vaccine (1 - 3-d ose SCDM series) HPV Vaccine (1 - 3-dose SCDM series) [facility] Start: 2017 Screening for malign ant neoplasm of cervix Cervical Cancer Screening [facility] Start: 2015 Hepatitis B Vaccine (1 of 3 - 19+ 3-dose series) Hepatitis B Vaccine (1 of 3 - 19+ 3-dose series) [facility] Start: 2015 Urine microalbumin profile DTaP,Tdap,Td Vaccine (1 - Tdap) [facility] Start: 2014 Anxiety Screening Anxiety Screening [facility] Start: 2014 Depression Screening Depression Scre eugeniaing [facility] Start: 2014 Hepatitis C screening Hepatitis C [place] [facility] Start: 2014 HIV screening HIV Screening [facility] Bacteria identified in Urine by Culture BACTERIAL CULTURE, URINE Microbiology Routine Encounter for test, result positive 01/24/2025 1:31 PM [facility] BACTERIAL VAGINOSIS NAAT BACTERI AL VAGINOSIS NAAT Lab Routine Encounter for test, result positive 01/24/2025 1:31 PM [facility] CARLINE/TRICHOMONAS NAAT CARLINE /TRICHOMONAS NAAT Lab Routine Encounter for test, result positive 01/24/2025 1:31 PM [facility] Chlamydia trachomatis+Neisseria gonorrhoeae DNA [Presence] in Unspecified specimen by ANJUM with probe detection GONORRHEA/CHLAMYDIA NAAT Lab Routine Encounter for test, result positive 01/24/2025 1:31 PM [facility] COLPOSCOPY COLPOSCOPY Proce dures Routine ASCUS with positive high risk HPV cervical Ordered: 12/06/2024 [facility] Work Phone: Comment on above: Ordered: 12/06/2024 COLPOSCOPY COLPOSCOPY Proce dures Routine ASCUS with positive high risk HPV cervical Ordered: 12/13/2024 [facility] Work Phone: Comment on above: Ordered: 12/13/2024 PAP TEST PAP TEST Lab Dileep martinez Encounter for gynecological examination (general) (routine) without abnormal findings Screening for cervical cancer 11/29/2024 1:55 PM EST [facility] ROUTINE, GR OUP B STREPTOCOCCUS BY PCR ROUTINE, GROUP B STREPTOCOCCUS BY PCR Microbiology Routine Encounter for supervision of other normal in third trimester (HCC) 36 weeks gestation of (HCC) 08/01/2025 10:34 AM EDT [facility] Work Phone: Immunizations Immunization Date Immunization Notes Care Provider Ann esposito 07-21-2000 HPV, unspecified formulation Elvia Mckeon MD Work Phone: [facility] Payers Date Payer Category Payer Self-pay 2024 Unknown [id number] 2024 [employer] [id number] 2024 Unknown [id number] 2024 Unknown [id number] 1996 Unknown [id number] Unknown [id number] Unknown [id number] Social History Date Type Detail Facility Start: 11-21-2024 Tobacco smoking stat [facility] Never smoked tobacco [facility] Start: 11-21-2024 Tobacco use and exposure Smoke less tobacco non-user [facility] Start: 11-21-2024 End: 12-13-2024 Alcoholic beverage intake Current drinker of alcohol (finding) [facility] Start: 11-21-2024 End: 11-29-2024 History of Social function [facility] Start: 11-21-2024 End: 11-29-2024 Tobacco use panel [facility] Start: 11-21-2024 Alcohol Comment socially [facility] Start: 1995 Sex assigned at Female [facility] Start: 11-21-2024 Gender identity Identifies as female gender (finding) [facility] Start: 11-21-2024 Sexual orientation Heterosexual (fin ding) [facility] Start: 10-28-2024 National Score (1-10 0), lower number is lower risk 48 [facility] Start: 01-24-2025 End: 08-01-2025 Alcoholic beverage intake Ex-drinker (finding) [facility] Start: 12-05-2024 [facility] Goals Date Patient Goal Desired Activity /State Personal health goal Clinical Notes 11-21-2024 to 08-01-2025 Quick Notes - Elvia Mckeon MD - 08/01/2025 10:30 AM EDTPrenatal Quick Notes - Elvia Mckeon MD - 08/01/2025 10:30 AM EDTPatient InstructionsPatient InstructionsPatient Instructions Note Date & Type Note Facility 08-01-2025 Progress note Formatting of t his note might be different from the original. S: Natalie Pike is a 30 year old female who presents at 08/28/2025, by Last Menstrual Period for a routine visit. Denies headache, visual changes, chest pain, shortness of breath, vaginal bleeding, leakage of fluid, or dysuria. Feeling well, no complaints. Good movement, No contractions O: See flow sheet Gen: No apparent distress Abd: Gravid, nontender VTX by US GBS collected ASSESSMENT/PLAN: 1. Encounter for supervision of other normal in third trimester ([facility]) - ICD9: V22.1, ICD10: Z34.83 (primary diagnosis) - URINE OB DIP B/O - ROUTINE, GROUP B STREPTOCOCCUS BY PCR 2. 36 weeks gestation of ([facility]) - ICD9: V22.2, ICD10: Z3A.36 - URINE OB DIP B/O - ROUTINE, GROUP B STREPTOCOCCUS BY PCR Elvia Mckeon MD [facility] 08-01-2025 Miscellaneous Notes S: Natalie Pike is a 30 year old female who presents at 08/28/2025, by Last Menstrual Period for a routine visit. Denies headache, visual changes, chest pain, shortness of breath, vaginal bleeding, leakage of fluid, or dysuria. Feeling well, no complaints. Good movement, No contractions O: See flow sheet Gen: No apparent distress Abd: Gravid, nontender VTX by US GBS collected ASSESSMENT/PLAN: 1. Encounter for supervision of other normal in third trimester ([facility]) - ICD9: V22.1, ICD10: Z34.83 (primary diagnosis) - URINE OB DIP B/O - ROUTINE, GROUP B STREPTOCOCCUS BY PCR 2. 36 weeks gestation of ([facility]) - ICD9: V22.2, ICD10: Z3A.36 - URINE OB DIP B/O - ROUTINE, GROUP B STREPTOCOCCUS BY PCR Elvia Mckeon MD documented in this encounter [facility] 08-01-2025 Instructions Evan Virgen LPN - 08/01/2025 10:13 AM EDT SEQUENTIAL SCREENINGS The [facility] offers sequential screenings for women who are interested in screenings for chromosomal abnormalities and certain defects during a . The sequential screen combines ultrasound and blood tests to determine the risk of chromosomal abnormalities, including Down's Syndrome (Trisomy 21) and Trisomy 18, as well as open neural tube defects including spina bifida. Ultrasound examination is performed between 11 weeks and 13 weeks gestational age. Blood tests are drawn after the ultrasound and again later in the between 15 and 21 weeks gestational age. Please let your physician know if you are interested in this testing. It will require an appointment with our log data technician. This is not an ultrasound performed by a physician in our office during a routine visit. SIGNS AND SYMPTOMS OF LABOR 1. Contractions every 10 minutes or more often 2. Clear, pink, or brownish fluid (water) leaking from vagina 3. Feeling that baby is pushing down, pressure 4. Low, dull backache 5. Cramps that feel like a period 6. Cramps with or without diarrhea If you notice any of the above symptoms, contact our office at [phone] and ask to speak with a nurse. After hours, you can call doctors [facility] at [phone] OR call [facility] at [phone] and ask to have the doctor cosmetics and toiletries salesperson paged. If you consider this an emergency, dial 9-1-8 or go to your nearest emergency department. NEED HELP? Are you dealing with a violent or abusive relationship? Are you a victim of rape or sexual assult? Call [facility] ([facility] 24 hour Crisis Hotline: 948.364.3988 or 002-658-9386. MANUAL Your Guide to a Healthy manual is now on-line. Visit [email or web address] Igor to download your free copy documented in this encounter [facility] 07-22-2025 Progress note Formatting of t his note might be different from the original. RR_ Doing well. No VB/LOF. NO ctxs. No other c/o. F/u in 2 weeks. Erik Sandoval MD [facility] 07-22-2025 Miscellaneous Notes RR_ Doing well. No VB/LOF. NO ctxs. No other c/o. F/u in 2 weeks. Erik Sandoval MD documented in this encounter [facility] 07-22-2025 Instructions Ching Jerry MA - 07/22/2025 10:44 AM EDT SEQUENTIAL SCREENINGS The [facility] offers sequential screenings for women who are interested in screenings for chromosomal abnormalities and certain defects during a . The sequential screen combines ultrasound and blood tests to determine the risk of chromosomal abnormalities, including Down's Syndrome (Trisomy 21) and Trisomy 18, as well as open neural tube defects including spina bifida. Ultrasound examination is performed between 11 weeks and 13 weeks gestational age. Blood tests are drawn after the ultrasound and again later in the between 15 and 21 weeks gestational age. Please let your physician know if you are interested in this testing. It will require an appointment with our log data technician. This is not an ultrasound performed by a physician in our office during a routine visit. SIGNS AND SYMPTOMS OF LABOR 1. Contractions every 10 minutes or more often 2. Clear, pink, or brownish fluid (water) leaking from vagina 3. Feeling that baby is pushing down, pressure 4. Low, dull backache 5. Cramps that feel like a period 6. Cramps with or without diarrhea If you notice any of the above symptoms, contact our office at [phone] and ask to speak with a nurse. After hours, you can call [facility] at [phone] OR call [facility] at [phone] and ask to have the doctor cosmetics and toiletries salesperson paged. If you consider this an emergency, dial 9-1-1 or go to your nearest emergency department. NEED HELP? Are you dealing with a violent or abusive relationship? Are you a victim of rape or sexual assult? Call [facility] ([place]) 24 hour Crisis Hotline: 695.166.2419 or 036-266-7147. MANUAL Your Guide to a Healthy manual is now on-line. Visit [email or web address] Igor to download your free copy documented in this encounter [facility] 07-07-2025 Note HNO ID: [id number] Author: JAMES AMATO MD Service: ? Author Type: Physician Type: Progress Notes Filed: 07/07/2025 08:37 Note Text: SW- Pt doing well. No pain, vb, lof. Good FM. PE: Gen- NAD, well appearing Abd- Soft, gravid, NT See flowsheet A/p 32 wk gestation - Discussed diet and exercise in - Working on selecting ped - Signed up for classes at [facility] - Planning on - Planning un medicated - RTO 2 wks James Amato DO [facility] 07-07-2025 History of Presen t illness Narrative SW- Pt doing well. No pain, vb, lof. Good FM. PE: Gen- NAD, well appearing Abd- Soft, gravid, NT See flowsheet A/p 32 wk gestation - Discussed diet and exercise in - Working on selecting ped - Signed up for classes at [facility] - Planning on - Planning un medicated - RTO 2 wks James Amato DO documented in this encounter [facility] 07-07-2025 Instructions Gabi Kim MA - 07/07/2025 8:17 AM EDT SEQUENTIAL SCREENINGS The [facility] offers sequential screenings for women who are interested in screenings for chromosomal abnormalities and certain defects during a . The sequential screen combines ultrasound and blood tests to determine the risk of chromosomal abnormalities, including Down's Syndrome (Trisomy 21) and Trisomy 18, as well as open neural tube defects including spina bifida. Ultrasound examination is performed between 11 weeks and 13 weeks gestational age. Blood tests are drawn after the ultrasound and again later in the between 15 and 21 weeks gestational age. Please let your physician know if you are interested in this testing. It will require an appointment with our log data technician. This is not an ultrasound performed by a physician in our office during a routine visit. SIGNS AND SYMPTOMS OF LABOR 1. Contractions every 10 minutes or more often 2. Clear, pink, or brownish fluid (water) leaking from vagina 3. Feeling that baby is pushing down, pressure 4. Low, dull backache 5. Cramps that feel like a period 6. Cramps with or without diarrhea If you notice any of the above symptoms, contact our office at [phone] and ask to speak with a nurse. After hours, you can call doctors registry at [phone] OR call [facility] at [phone] and ask to have the doctor cosmetics and toiletries salesperson paged. If you consider this an emergency, dial 9-5-0 or go to your nearest emergency department. NEED HELP? Are you dealing with a violent or abusive relationship? Are you a victim of rape or sexual assult? Call [facility] [place] ([place]) 24 hour Crisis Hotline: 786.445.4951 or 780-865-6880. MANUAL Your Guide to a Healthy manual is now on-line. Visit [email or web address] Igor to download your free copy documented in this encounter [facility] 06-20-2025 Progress note Formatting of t his note might be different from the original. LENA-S: Natalie Pike is a 29 year old female who presents at 30w1d with BETHANY:08/28/2025, by Last Menstrual Period for a routine visit. Denies headache, visual changes, chest pain, shortness of breath, vaginal bleeding, leakage of fluid, or dysuria. Feeling well, no complaints. O: See flow sheet Gen: No apparent distress Abd: Gravid, nontender ASSESSMENT/PLAN: 1. Supervision of high risk in second trimester -Continue PNV -Reviewed Perineal massage -CBE scheduled 2. 30 weeks gestation of 3. Elevated glucose tolerance test -1 level on 3hr GTT elevated, continue diet modifications and exercise PTL precautions reviewed and when to call RTO in 2 week Patricia Nelson APRN.CNM [facility] 06-20-2025 Miscellaneous Notes MARIAS: Natalie Pike is a 29 year old female who presents at 30w1d with BETHANY:08/28/2025, by Last Menstrual Period for a routine visit. Denies headache, visual changes, chest pain, shortness of breath, vaginal bleeding, leakage of fluid, or dysuria. Feeling well, no complaints. O: See flow sheet Gen: No apparent distress Abd: Gravid, nontender ASSESSMENT/PLAN: 1. Supervision of high risk in second trimester -Continue PNV -Reviewed Perineal massage -CBE scheduled 2. 30 weeks gestation of 3. Elevated glucose tolerance test -1 level on 3hr GTT elevated, continue diet modifications and exercise PTL precautions reviewed and when to call RTO in 2 week Patricia Nelson APRN.CNM documented in this encounter [facility] 06-20-2025 Instructions Patricia Nelson APRN.CNM - 06/20/2025 10:34 AM EDT Images from the original note were not included. What is my perineum? Your perineum is the area between your vaginal opening and your rectum. This area stretches when you give , and sometimes the perineum or vagina will tear as your baby is being born. If your health care provider cuts an episiotomy during your , it is this area that is cut. You may need stitches after your baby is born if you have a tear or have an episiotomy. How often do perineal tears occur? About 4 to 8 out of every 10 women who give vaginally will have some tear in their perineum. About two?thirds of these women will need some stitches. Is an episiotomy necessary? An episiotomy is not necessary for most women. Although they were common before the , they are rarely done today. However, sometimes your health care provider may recommend an episiotomy just as your baby is being born. For example, an episiotomy can help if your baby needs to be born very quickly. You can ask your health care provider to talk with you about episiotomy during a visit. Can my health care provider do anything to help me avoid a tear? There are many ways that your health care provider can help to reduce your chance of tearing. For example, your provider may: Apply a warm compress to the perineum just before the baby comes out Recommend specific positions for you to be in as you push Provide gentle downward pressure on the baby's head as your baby is coming out Ask that you push your baby out between contractions Avoid the use of forceps or a vacuum to help your baby be born Can I do anything before the to help me avoid a tear? Preventing a perineal tear that occurs during has been the subject of many research studies. Several studies have found that perineal massage during the last weeks of can reduce tearing at for women giving for the first time. This massage--using 2 fingers to stretch your perineal tissues--is performed by you, in your home, once or twice a week, for the last 4 to 6 weeks of your . The next page of this handout tells how to do this massage. For every 15 women who do perineal massage, one woman will avoid an episiotomy and perineal tearing that needs stitches. While you massage, you can practice relaxing the muscles in your perineum. This can help you prepare for the stretching, burning feeling you may have when your baby's head is born. Relaxing this area during can help prevent tearing. Does perineal massage in help all women? Massage seems to work better for some women than others. Women having their first baby, women who are 30 years or older, and women who have had episiotomies before have fewer tears and less severe tears when perineal massage is done during the last weeks of . Can my partner help? Yes! Many women find that it is easier to have their partners do this massage. See the instructions for perineal massage on the next page for more information. Are there any risks to perineal massage during ? Not that we know of. It is free. It doesn't hurt. It is easy to do. And most women don't mind doing it. However, you should not stretch the perineum until it hurts or massage too often, which can hurt the skin in that area. Do not do perineal massage more than once or twice a week. Women who do it more often do not have a lower risk of perineal tearing. Check with your health care provider before beginning perineal massage. And, if you believe your amniotic fluid (bag of yeager) is leaking, check with your health care provider before putting anything in your vagina. Instructions for Perineal Massage During Wash your hands well, and make sure your fingernails are short. Relax in a private place where you can rest with your legs open and your knees bent. Some women like to lean on pillows for back support. Lubricate your thumbs and the perineal tissues. Use a lubricant such as vitamin E oil, coconut oil, almond oil, or any vegetable oil used for cooking--like olive oil. You may also try a water?soluble jelly, such as K?Y jelly, or your body's natural vaginal lubricant. Do not use baby oil, mineral oil, or petroleum jelly (Vaseline). Place your thumbs about 1 to 1.5 inches inside your vagina (see Figure 1). Press down (toward the anus) and to the sides until you feel a slight burning, stretching sensation. Hold that stretched position for 1 or 2 minutes. With your thumbs, slowly massage the lower half of the vagina using a U?shaped movement for 2 to 3 minutes at most. Concentrate on relaxing your muscles. This is a good time to practice slow, deep breathing techniques. Partners: If your partner is doing the perineal massage, follow the same basic instructions above. However, your partner should use his or her index fingers to do the massage (instead of thumbs). The same side?to?side, U?shaped, downward pressure method should be used. Good communication is important--be sure to tell your partner if you have too much pain or burning! Figure 1 1 Perineal Massage Flesch?Alice Grade Level: 7.2 Approved November 2015. This handout replaces Perineal Massage in published in Volume 50, Issue 1, Dec 2004 Preparing for labor: Eat dates to promote spontaneous labor! Has an oxytocin-like effect on the body, leading to increased sensitivity of the uterus. Stimulates uterine contractions. Reduces hemorrhage the way oxytocin does. Date fruit contains saturated and unsaturated fatty acids such as oleic, linoleic, and linolenic acids, which are involved in saving and supplying energy and construction of prostaglandins. In addition, serotonin, tannin, and calcium in date fruit contribute to the contraction of smooth muscles of the uterus. Date fruit also has a laxative effect, which stimulates uterine contractions. Six dates per day is the magic number--provided that you re eating smaller deglet noor dates. Deglet noor dates are about 1 inch long. Medjool dates can be up to 2 inches long. If you re eating medjool dates, you only need about 3 dates to reach the 75 grams recommended in the studies. Not sure which type of date you have in your refrigerator? It s probably a deglet noor. How to Eat Dates During Dates are a healthy and delicious snack, so how can you add them to your diet? Add dates during in this awesome oatmeal recipe. Add dates to replace sugar in your favorite recipe or to mayela your homemade almond milk. Use dates and nuts to make an easy pie crust in the food preparation kitchen aide. Add soaked dates to homemade nut butter for a sweet treat. Add dates to mayela homemade salad dressing. Add dates during easily with these yummy (paleo friendly) bars made from dates. What Is Red Raspberry [place] Tea? Red raspberry leaf tea comes from the leaves of the red raspberry plant. This herbal tea has been used for centuries to support respiratory, digestive and uterine health, particularly during and childbearing years. While usually known as a female herb, red raspberry leaf tea can also help support the prostate and various stomach ailments in children. How It Can Help and Red raspberry leaf tea can help to make labor faster and reduce complications and interventions during . One study found that women who consumed RRL tea regularly are less likely to go overdue or give prematurely. These women may also be less likely to receive an artificial rupture of their membranes or require a section, forceps, or vacuum than the women in the control group. Red raspberry leaf has many other benefits to , , and too. How Much Red Raspberry [place] Tea to Drink? With your doctor or mandarin chinese teacher s approval, start with 1 cup of red raspberry leaf tea per day starting in the second trimester. Watch for any uterine cramping or other reactions. If you don t experience any, you can talk to your healthcare provider about increasing to 2 cups per day. Again, watch for any uterine cramping. If you notice any, cut back on your dosage for two weeks and try again. Keep in mind, some moms have irritable uteruses and can only drink red raspberry leaf tea once they reach their due date because of uterine cramping. Is Red Raspberry [place] Tea the Same as Raspberry [place] Tea? How About Plain Old Raspberry Tea? Sometimes. You really need to look at the ingredients to be sure. Note that there is no difference between red raspberry leaf and raspberry leaf. [employer] or [employer] Raspberry [place] Tea are two good brands. The red raspberry leaf teas that we recommend are 100% red raspberry leaf. Other teas labeled as raspberry are often a blend of rosehips, hibiscus, raspberry leaves, and raspberry flavor. So they may not be as effective. The teas to avoid are raspberry-flavored herbal teas, which may have ingredients like hibiscus, teodora hips, apples, elderberries, natural and artificial raspberry flavors. Teas like this don t contain raspberry leaf at all and thus won t offer any of the potential benefits of RRLT outlined in this article. [employer] www.[employer] I named this 'circuit' after my friend Mitra Smith, who shared and discussed it with me when I was working with a client whose labor seemed to be stalled out and no longer progressing... This circuit is useful to help get the baby lined up, ideally, in the Left Occiput Anterior (MELISSA) Position, both before labor begins and when some corrections need to be done during labor. Prenatally, this position set can help to rotate a baby. As a natural method of induction, this can help get things going if baby just needed a gentle nudge of position to set things off. To the best of my knowledge, this group of positions will not hurt a baby that is already lined up correctly. - Herminia Yost Before you Begin..... This circuit takes at least 90 minutes to complete so clear your schedule and make mental preparations so you can relax in your environment. The second step requires a lot of pillows so gather them up before beginning Before starting, you should empty your bladder! Have a nice drink nearby, and make sure it has a straw! If you are having contractions, this circuit should bedone through contractions, try not to change positions between steps Step One: Open-knee Chest Stay in this position for 30 minutes, start in cat/cow, then drop your chest as low as you can to the bed or the floor and your bottom as high as you can. Knees should be fairly wide apart, and the angle between the torso/thighs should be wider than 90 degrees. Wiggle around, prop with lots of pillows and use this time to get totally relaxed. This position allows the baby to scoot out of the pelvis a bit and gives them room to rotate, shift their head position, etc. If the person finds it helpful,careful positioning with a rebozo under the belly, with gentle tension from a support person behindcan help maintain this position for the full 30minutes. Step Two: Exaggerated Left Side Lying Roll to your left side, bringing your top leg as high as possible and keeping your bottom leg straight. Roll forward as much as possible,again using a lot of pillows. Sink into the bed and relax some more. If you fall asleep, that's totally okay and you can stay there! If not, stay here for at least another half an hour. Try and get your top right leg up towards your head and get as rolled over onto your belly as much as possible. If you repeat the circuit during labor, try alternating left and right sides. We know the photo the left is actually right side... just flip the image in your head. Step Three: Glenda and Luigi Todd, walk stairs facing sideways, 2 at a time, (have a pipe and test supervisor downstairs of you!), take a walk outside with one foot on the curb and the other on the street, sit on a ball and hula- anything that's upright and putting your pelvis in open, asymmetrical positions. Spend at least 30 minutes doing this one as well to give your baby a chance to move down. If you are lunging or stair or curb walking, you should lunge/walk/go up stairs in the direction that feels better to you. The morgan with the lunge is that the toes of the higher leg and mom's belly button should be at right angles. Do not lunge over your knee, that closes the pelvis. Mitra Smith: Circuit Creator - www.[facility]birthcollective.c eduard Yost, CD, BDT (ROCÍO), LCCE, FACCE: Supporting Content - www.herminiaUMass Amherstantonio.Pixtr Puja Genao: Photography - www.V[employer] SensorsjojoEventfinda.Pixtr Fiona García CD/CDT (ZEESHAN): Print and Holistic Nutritionist - www.[employer] www.[employer] SIGNS AND SYMPTOMS OF LABOR 1. Contractions every 10 minutes or more often 2. Clear, pink, or brownish fluid (water) leaking from vagina 3. Feeling that baby is pushing down, pressure 4. Low, dull backache 5. Cramps that feel like a period 6. Cramps with or without diarrhea If you notice any of the above symptoms, contact our office at [phone] and ask to speak with a nurse. After hours, you can call doctors registry at [phone] OR call [facility] at [phone] and ask to have the doctor cosmetics and toiletries salesperson paged. If you consider this an emergency, dial 9-1-1 or go to your nearest emergency department. NEED HELP? Are you dealing with a violent or abusive relationship? Are you a victim of rape or sexual assult? Call [facility] ([place]) 24 hour Crisis Hotline: 357.385.6781 or 212-681-0740. MANUAL Your Guide to a Healthy manual is now on-line. Visit [email or web address] Igor to download your free copy documented in this encounter [facility] 06-06-2025 Progress note Formatting of t his note might be different from the original. S: Natalie Pike is a 29 year old female who presents at 08/28/2025, by Last Menstrual Period for a routine visit. Denies headache, visual changes, chest pain, shortness of breath, vaginal bleeding, leakage of fluid, or dysuria. Feeling well, no complaints. Good movement, No contractions O: See flow sheet Gen: No apparent distress Abd: Gravid, nontender Fresh test today Declined LARC Declined TDAP Has plan to review ASSESSMENT/PLAN: 1. Supervision of high risk in second trimester (HCC) - ICD9: V23.9, ICD10: O09.92 (primary diagnosis) 2. 28 weeks gestation of (HCC) - ICD9: V22.2, ICD10: Z3A.28 Elvia Mckeon MD [facility] 06-06-2025 Miscellaneous Notes S: Natalie Pike is a 29 year old female who presents at 08/28/2025, by Last Menstrual Period for a routine visit. Denies headache, visual changes, chest pain, shortness of breath, vaginal bleeding, leakage of fluid, or dysuria. Feeling well, no complaints. Good movement, No contractions O: See flow sheet Gen: No apparent distress Abd: Gravid, nontender Fresh test today Declined LARC Declined TDAP Has plan to review ASSESSMENT/PLAN: 1. Supervision of high risk in second trimester (HCC) - ICD9: V23.9, ICD10: O09.92 (primary diagnosis) 2. 28 weeks gestation of ([facility]) - ICD9: V22.2, ICD10: Z3A.28 Elvia Mckeon MD documented in this encounter [facility] 06-06-2025 Instructions Marissa Issa MA - 06/06/2025 8:57 AM EDT SEQUENTIAL SCREENINGS The [facility] offers sequential screenings for women who are interested in screenings for chromosomal abnormalities and certain defects during a . The sequential screen combines ultrasound and blood tests to determine the risk of chromosomal abnormalities, including Down's Syndrome (Trisomy 21) and Trisomy 18, as well as open neural tube defects including spina bifida. Ultrasound examination is performed between 11 weeks and 13 weeks gestational age. Blood tests are drawn after the ultrasound and again later in the between 15 and 21 weeks gestational age. Please let your physician know if you are interested in this testing. It will require an appointment with our log data technician. This is not an ultrasound performed by a physician in our office during a routine visit. SIGNS AND SYMPTOMS OF LABOR 1. Contractions every 10 minutes or more often 2. Clear, pink, or brownish fluid (water) leaking from vagina 3. Feeling that baby is pushing down, pressure 4. Low, dull backache 5. Cramps that feel like a period 6. Cramps with or without diarrhea If you notice any of the above symptoms, contact our office at [phone] and ask to speak with a nurse. After hours, you can call doctors registry at [phone] OR call [facility] at [phone] and ask to have the doctor cosmetics and toiletries salesperson paged. If you consider this an emergency, dial 0-9-0 or go to your nearest emergency department. NEED HELP? Are you dealing with a violent or abusive relationship? Are you a victim of rape or sexual assult? Call [facility] [place] ([facility] 24 hour Crisis Hotline: 981.526.6454 or 796-528-1142. MANUAL Your Guide to a Healthy manual is now on-line. Visit [email or web address] Igor to download your free copy documented in this encounter [facility] 05-09-2025 Progress note Formatting of t his note might be different from the original. S: Natalie Pike is a 29 year old female who presents at 24 weeks gestation for a routine visit. Positive movements. Denies headache, visual changes, chest pain, shortness of breath, vaginal bleeding, leakage of fluid, or dysuria. Feeling well, no complaints. O: See flow sheet Gen: No apparent distress Abd: Gravid, nontender ASSESSMENT/PLAN: 1. 24 weeks gestation of 2. Supervision of high risk in second trimester 3. Screening for GDM - Purchasing The Fresh Test today - preference sheet handed out and patient to bring to next visit - Declines TDAP - Continue vitamin daily - Opted out of ASA - RTO 4 weeks or sooner if needed Ashlee Whitney APRN.CNM [facility] 05-09-2025 Miscellaneous Notes S: Natalie Pike is a 29 year old female who presents at 24 weeks gestation for a routine visit. Positive movements. Denies headache, visual changes, chest pain, shortness of breath, vaginal bleeding, leakage of fluid, or dysuria. Feeling well, no complaints. O: See flow sheet Gen: No apparent distress Abd: Gravid, nontender ASSESSMENT/PLAN: 1. 24 weeks gestation of 2. Supervision of high risk in second trimester 3. Screening for GDM - Purchasing The Fresh Test today - preference sheet handed out and patient to bring to next visit - Declines TDAP - Continue vitamin daily - Opted out of ASA - RTO 4 weeks or sooner if needed Ashlee Whitney APRN.CNM documented in this encounter [facility] 05-09-2025 Instructions Tanmay Moore MA - 05/09/2025 9:29 AM EDT SEQUENTIAL SCREENINGS The [facility] offers sequential screenings for women who are interested in screenings for chromosomal abnormalities and certain defects during a . The sequential screen combines ultrasound and blood tests to determine the risk of chromosomal abnormalities, including Down's Syndrome (Trisomy 21) and Trisomy 18, as well as open neural tube defects including spina bifida. Ultrasound examination is performed between 11 weeks and 13 weeks gestational age. Blood tests are drawn after the ultrasound and again later in the between 15 and 21 weeks gestational age. Please let your physician know if you are interested in this testing. It will require an appointment with our log data technician. This is not an ultrasound performed by a physician in our office during a routine visit. SIGNS AND SYMPTOMS OF LABOR 1. Contractions every 10 minutes or more often 2. Clear, pink, or brownish fluid (water) leaking from vagina 3. Feeling that baby is pushing down, pressure 4. Low, dull backache 5. Cramps that feel like a period 6. Cramps with or without diarrhea If you notice any of the above symptoms, contact our office at [phone] and ask to speak with a nurse. After hours, you can call doctors registry at [phone] OR call [facility] at [phone] and ask to have the doctor cosmetics and toiletries salesperson paged. If you consider this an emergency, dial 91-4 or go to your nearest emergency department. NEED HELP? Are you dealing with a violent or abusive relationship? Are you a victim of rape or sexual assult? Call [facility] [place] ([place]) 24 hour Crisis Hotline: 917.550.7183 or 049-469-9637. MANUAL Your Guide to a Healthy manual is now on-line. Visit the [email or web address] nancyGuangel to download your free copy documented in this encounter [facility] 04-24-2025 Telephone encounter Note Order signed and faxed. Charlotte Murdock RN [facility] 04-24-2025 Miscellaneous Notes Order signed and faxed. Charlotte Murdock RN Breast pump order received from [employer]. To CP to sign. Fawn Boston RN documented in this encounter [facility] 04-23-2025 Telephone encounter Note Breast pump order received from [employer]. To CP to sign. Fawn Boston, RN [facility] 03-21-2025 Progress note Formatting of t his note might be different from the original. S: Natalie Sexton is a 29 year old female who presents at 17 weeks gestation for a routine visit. Started feeling movements last week. Denies headache, visual changes, chest pain, shortness of breath, vaginal bleeding, leakage of fluid, or dysuria. Feeling well, no complaints. O: See flow sheet Gen: No apparent distress Abd: Gravid, non tender ASSESSMENT/PLAN: 1. 17 weeks gestation of 2. Supervision of high risk in second trimester - Discussed The Fresh Test and how to obtain for GCT - vitamin - Declined asa - Declines aneuploidy screenings - RTO 3 weeks for anatomy Ashlee Whitney APRN.CNM [facility] 03-21-2025 Miscellaneous Notes S: Natalie Sexton is a 29 year old female who presents at 17 weeks gestation for a routine visit. Started feeling movements last week. Denies headache, visual changes, chest pain, shortness of breath, vaginal bleeding, leakage of fluid, or dysuria. Feeling well, no complaints. O: See flow sheet Gen: No apparent distress Abd: Gravid, non tender ASSESSMENT/PLAN: 1. 17 weeks gestation of 2. Supervision of high risk in second trimester - Discussed The Fresh Test and how to obtain for GCT - vitamin - Declined asa - Declines aneuploidy screenings - RTO 3 weeks for anatomy Ashlee Whitney APRN.CNM documented in this encounter [facility] 02-24-2025 Progress note Formatting of t his note might be different from the original. LENA-S: Natalie Sexton is a 29 year old female who presents at 14w4d with BETHANY:08/28/2025, by Last Menstrual Period for a routine visit. Denies headache, visual changes, chest pain, shortness of breath, vaginal bleeding, leakage of fluid, or dysuria. Feeling well, no complaints. O: See flow sheet Gen: No apparent distress Abd: Gravid, nontender ASSESSMENT/PLAN: 1. Supervision of high risk in second trimester -Continue PNV -Declines ASA -PN labs completed previously, reviewed and normal -Declines NIPT -Anatomy US at 20 weeks 2. 13 weeks gestation of PTL precautions reviewed and when to call RTO in 4 weeks Patricia Nelson APRN.CNM [facility] 02-24-2025 Miscellaneous Notes LENA-S: Natalie Sexton is a 29 year old female who presents at 14w4d with BETHANY:08/28/2025, by Last Menstrual Period for a routine visit. Denies headache, visual changes, chest pain, shortness of breath, vaginal bleeding, leakage of fluid, or dysuria. Feeling well, no complaints. O: See flow sheet Gen: No apparent distress Abd: Gravid, nontender ASSESSMENT/PLAN: 1. Supervision of high risk in second trimester -Continue PNV -Declines ASA -PN labs completed previously, reviewed and normal -Declines NIPT -Anatomy US at 20 weeks 2. 13 weeks gestation of PTL precautions reviewed and when to call RTO in 4 weeks Patricia Nelson APRN.CNM documented in this encounter [facility] 02-24-2025 Instructions Patricia Nelson APRN.CNM - 02/24/2025 10:25 AM EDT Low Dose Aspirin This sheet talks about exposure to low dose aspirin in and while . This information should not take the place of medical care and advice from your healthcare provider.\ What is low dose aspirin? Aspirin is also known as acetylsalicylic acid. It is a common prescription and sjwh-jna-blkojju medication similar to other non-steroidal inflammatory drugs (NSAIDs) like ibuprofen (Motrin ) and naproxen (Aleve ). Aspirin reduces inflammation, fever, and pain. Aspirin can prevent blood clots, which can make it useful in treating or preventing conditions like heart attacks and strokes. Low dose aspirin ranges from 60 to 150 mg daily, but the usual dose taken during to treat or prevent certain conditions is 81 mg daily.Regular strength and high strength aspirin and other NSAIDs are NOT preferred pain relievers during .Sometimes when people find out they are , they think about changing how they take their medication, or stopping their medication altogether. However, it is important to talk with your healthcare providers before making any changes to how you take this medication. Your healthcare providers can talk with you about the benefits of treating your condition and the risks of untreated illness during . I take low dose aspirin. Can it make it harder for me to get ? Low dose aspirin is not expected to make it harder to get . A study that included people who had 1 or 2 documented losses then asked to take daily low dose aspirin found that taking low dose aspirin at least 4 days a week increased the chance of a . Does taking low dose aspirin increase the chance for miscarriage? Miscarriage can occur in any . Taking low doses of aspirin is not thought to increase the chance of miscarriage. Some studies have shown that taking low dose aspirin before may help lower the chance of miscarriage in some people who have had one or more miscarriages before 20 weeks of . These findings are similar to studies that showed improved outcomes in people undergoing assisted reproductive technologies (fertility treatments) and were treated with low dose aspirin prior to implantation of the fertilized egg into the uterus. Does taking low dose aspirin increase the chance of defects? Every starts out with a 3-5% chance of having a defect. This is called the background risk. Studies on the use of low dose aspirin during have not found a higher chance of defects. Does taking low dose aspirin in increase the chance of other related problems? Taking low dose aspirin as directed by a healthcare provider is not expected to cause other problems. Studies have shown that low dose aspirin might improve outcomes in some people by increasing blood flow to and reducing inflammation or swelling in the uterus. Studies have also shown that low dose aspirin might lower the chances for preeclampsia (dangerously high blood pressure and complications) in people who are at high risk for this condition. However, people who are should only take low dose aspirin if their healthcare provider recommends it. Does taking low dose aspirin in affect future behavior or learning for the child? There are not many studies about long-term effects for children exposed to low dose aspirin during . However, studies have not found an increased chance for problems with physical or mental development in infants at 18 months of age. A study that looked at children up to 5 years of age who were born very early (before 33 weeks) and who were exposed to low dose aspirin during did not find an effect on their learning or behavior compared to children who were not exposed to low dose aspirin during . while taking low dose aspirin: The occasional use of low dose aspirin (75 mg daily to below 300 mg daily) is not expected to increase risks to a . Only small amounts of low dose aspirin enter the breast milk and adverse effects have not been reported in breastfed newborns or older infants. Healthcare providers might recommend low dose aspirin in some people during to treat certain medical conditions. However, regular strength aspirin (over 325 mg) is not preferred during . Aspirin eliminates from an s body more slowly than from an adult s body, so aspirin levels in the infant s body could build up over time with long-term use of aspirin. Using high dose aspirin can lower the body s ability to clot blood(could lead to easier bruising or bleeding). This is not likely to happen with low dose aspirin. Talk with your Healthcare provider about your questions. If a male takes low dose aspirin, could it affect fertility (ability to get partner ) or increase the chance of defects? There is very limited information about the effects of low dose aspirin on male reproduction. One study looked at men who attended an infertility clinic and were taking non-prescribed low dose aspirin at different doses and frequencies for at least six months. The study reported a decrease in the amount and quality of sperm, especially in those who used higher amounts of aspirin. Generally, it is not considered necessary for men to stop using low dose aspirin before trying to get their partner . However, men undergoing fertility treatment may want to talk with their healthcare providers about whether or not they need to stop taking aspirin. In general, exposures that fathers or sperm donors have are unlikely to increase the risks to a . For more information, please see the Mother[employer]cell[employer]BaProf[employer] fact sheet Paternal Exposures at https://[email or web address].org/fact-s heets/vkafhcry-jisheubpa-pwdsob ncy/. SIGNS AND SYMPTOMS OF LABOR 1. Contractions every 10 minutes or more often 2. Clear, pink, or brownish fluid (water) leaking from vagina 3. Feeling that baby is pushing down, pressure 4. Low, dull backache 5. Cramps that feel like a period 6. Cramps with or without diarrhea If you notice any of the above symptoms, contact our office at [phone] and ask to speak with a nurse. After hours, you can call doctors registry at [phone] OR call [facility] at [phone] and ask to have the doctor cosmetics and toiletries salesperson paged. If you consider this an emergency, dial 7-8-2 or go to your nearest emergency department. NEED HELP? Are you dealing with a violent or abusive relationship? Are you a victim of rape or sexual assult? Call [facility] ([place]) 24 hour Crisis Hotline: 478.515.7280 or 723-028-7195. MANUAL Your Guide to a Healthy manual is now on-line. Visit [email or web address] jajaGuangel to download your free copy documented in this encounter [facility] 01-24-2025 Progress note Formatting of t his note might be different from the original. MY today. See progress note. Patricia Nelson APRN.CNM [facility] 01-24-2025 Miscellaneous Notes MY today. See progress note. Patricia Nelson APRN.CNM documented in this encounter [facility] 01-24-2025 Note HNO ID: [id number] Author: PATRICIA NELSON APRN.CNM Service: ? Author Type: Senior Human Resources Representative Type: Progress Notes Filed: 01/24/2025 14:07 Note Text: INITIAL OB ASSESSMENT HPI: Natalie is a 29 year old White Female here to establish Obstetrical Care. Patient's last menstrual period was 11/21/2024 (exact date). from OB Dating Form. was planned Complaints: No OB History Gravida2 Para0 Term0 Preterm0 AB1 Living0 SAB1 IAB0 Ectopic0 Multiple0 Live Births0 Previous history: Prior : never History of 4th degree laceration: NA History of shoulder dystocia: No History of Hypertensive disorders including pre-eclampsia or gestational hypertension: NA History of gestational diabetes: NA Patient's Risk Screening for delivery: Have you had a prior reed between 20w and 36w6d? No How many pregnancies have you had before? 0 Did you have a previous baby with a GBS Infection? No Please select all that apply for any prior : N/A MEDICAL/PSYCHOSOCIAL HISTORY: History of hemorrhage or bleeding concerns: No Thyroid Disease: No History of chronic hypertension: No History of pre-existing diabetes: No BMI 24.37 kg/(m2) Last Pap: 12/04/2024 History of abnormal pap: Yes, ASCUS w/ positive HPV - Colposcopy done 12/13/24 no biopsies Prior treatment for cervical dysplasia: N/A. Last HPV: 12/05/2024 History of STDs: HPV Partner History of STDs: None Did you have a partner with Herpes? No Tobacco use: No E-Cigarette/Vaping Use: No Caffeine use: Yes - some, not daily Drug use: No Alcohol use: No Multivitamin with Folic acid: Yes Would refuse blood transfusion if medically necessary: No Social Needs: How often does this describe you? I don't have enough money to pay my bills: Never Within the past 12 months, have you worried that your food would run out before you had money to buy more? Never In the past 12 months, has lack of reliable transportation kept you from going to medical appointments or work, or from getting things needed for daily living? Never In the past 12 months, have you had any concerns about having a place to live, or about the condition or quality of your housing? Never Would you like more information on any of the following (please check all that apply)? 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 No Do you have a history of abuse or trauma that may impact your experience? No Are you currently employed? Yes Depression/Anxiety Screening: denies symptoms of depression. OB Depression and Anxiety Screening- This Encounter (since 01/23/2025) Over the past 2 weeks have you felt down, depressed, or hopeless? Negative Over the past two weeks, have you felt little interest or pleasure in doing things?? Negative Feeling nervous, anxious or on edge 0-Not at all Not being able to stop or control worrying 0-Not al all Anxiety Pre-Screening Total (If >/= 3 additional questions will be reviewed) 0 Genetic Screening: Partner present: Yes Patient verbalized knowledge of partner family health history: Yes Do you or your partner have any personal or family history of defects not previously discussed: No Do you have history of a complicated by anomaly, genetic condition, or demise: No Preeclampsia Risk Screening: Screening for prevention of preeclampsia: High risk factors: None Moderate risk ractors: Nulliparity OB Risk Screening: Completed, no positive findings documented. Marital Status: Partner: Name: Surya Head Age: 28 Occupation: [employer] Gender: Male PAST MEDICAL HISTORY Diagnosis Date Abnormal Pap smear of cervix November 2024 HPV positive. No abnormal cells seen in colposcopy NEGATIVE MEDICAL HISTORY PAST SURGICAL HISTORY Procedure Laterality Date PAST SURGICAL HISTORY OF Right 2010 cornea transplant ( partial) Current Outpatient Medications Medication Sig Dispense Refill PNV no.95/ferrous fum/folic ac ( ORAL) Take by mouth. No current facility-administered medications for this visit. Allergies As of Date: 01/24/2025 (No Known Allergies) Fully Assessed 12/13/2024 Does patient have penicillin allergy: No REVIEW OF SYSTEMS: GENERAL: Negative for: Fever or Chills HEENT: Negative for: Headache, Impaired Vision, Ringing in Ears, Nosebleeds NECK: Negative for: Swelling, Pain, Stiffness RESPIRATORY: Negative for: Cough, Shortness of breath, Wheezing GASTROINTESTINAL: Negative for: Heartburn, Constipation, Diarrhea, Blood in stool, Vomiting MUSCULOSKELETAL: Negative for: Muscle or joint pain, stiffness, Joint swelling NEUROLOGIC/PSYCHIATRIC: Negative for: Weakness, Paralysis, Numbness, Tingling, Tremor, Anxiety, Depression, Memory loss SKIN: Negative for: Rash (more content not included)... [facility] 01-24-2025 History of Presen t illness Narrative INITIAL OB ASSESSMENT HPI: Natalie is a 29 year old White Female here to establish Obstetrical Care. Patient's last menstrual period was 11/21/2024 (exact date). from OB Dating Form. was planned Complaints: No OB History Gravida2 Para0 Term0 Preterm0 AB1 Living0 SAB1 IAB0 Ectopic0 Multiple0 Live Births0 Previous history: Prior : never History of 4th degree laceration: NA History of shoulder dystocia: No History of Hypertensive disorders including pre-eclampsia or gestational hypertension: NA History of gestational diabetes: NA Patient's Risk Screening for delivery: Have you had a prior reed between 20w and 36w6d? No How many pregnancies have you had before? 0 Did you have a previous baby with a GBS Infection? No Please select all that apply for any prior : N/A MEDICAL/PSYCHOSOCIAL HISTORY: History of hemorrhage or bleeding concerns: No Thyroid Disease: No History of chronic hypertension: No History of pre-existing diabetes: No BMI 24.37 kg/(m^2) Last Pap: 12/04/2024 History of abnormal pap: Yes, ASCUS w/ positive HPV - Colposcopy done 12/13/24 no biopsies Prior treatment for cervical dysplasia: N/A. Last HPV: 12/05/2024 History of STDs: HPV Partner History of STDs: None Did you have a partner with Herpes? No Tobacco use: No E-Cigarette/Vaping Use: No Caffeine use: Yes - some, not daily Drug use: No Alcohol use: No Multivitamin with Folic acid: Yes Would refuse blood transfusion if medically necessary: No Social Needs: How often does this describe you? I don't have enough money to pay my bills: Never Within the past 12 months, have you worried that your food would run out before you had money to buy more? Never In the past 12 months, has lack of reliable transportation kept you from going to medical appointments or work, or from getting things needed for daily living? Never In the past 12 months, have you had any concerns about having a place to live, or about the condition or quality of your housing? Never Would you like more information on any of the following (please check all that apply)? 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 No Do you have a history of abuse or trauma that may impact your experience? No Are you currently employed? Yes Depression/Anxiety Screening: denies symptoms of depression. OB Depression and Anxiety Screening- This Encounter (since 01/23/2025) Over the past 2 weeks have you felt down, depressed, or hopeless? Negative Over the past two weeks, have you felt little interest or pleasure in doing things? Negative Feeling nervous, anxious or on edge 0-Not at all Not being able to stop or control worrying 0-Not al all Anxiety Pre-Screening Total (If >/= 3 additional questions will be reviewed) 0 Genetic Screening: Partner present: Yes Patient verbalized knowledge of partner family health history: Yes Do you or your partner have any personal or family history of defects not previously discussed: No Do you have history of a complicated by anomaly, genetic condition, or demise: No Preeclampsia Risk Screening: Screening for prevention of preeclampsia: High risk factors: None Moderate risk ractors: Nulliparity OB Risk Screening: Completed, no positive findings documented. Marital Status: Partner: Name: Surya Head Age: 28 Occupation: [employer] Gender: Male PAST MEDICAL HISTORY Diagnosis Date Abnormal Pap smear of cervix November 2024 HPV positive. No abnormal cells seen in colposcopy NEGATIVE MEDICAL HISTORY PAST SURGICAL HISTORY Procedure Laterality Date PAST SURGICAL HISTORY OF Right 2010 cornea transplant ( partial) Current Outpatient Medications Medication Sig Dispense Refill PNV no.95/ferrous fum/folic ac ( ORAL) Take by mouth. No current facility-administered medications for this visit. Allergies As of Date: 01/24/2025 (No Known Allergies) Fully Assessed 12/13/2024 Does patient have penicillin allergy: No REVIEW OF SYSTEMS: GENERAL: Negative for: Fever or Chills HEENT: Negative for: Headache, Impaired Vision, Ringing in Ears, Nosebleeds NECK: Negative for: Swelling, Pain, Stiffness RESPIRATORY: Negative for: Cough, Shortness of breath, Wheezing GASTROINTESTINAL: Negative for: Heartburn, Constipation, Diarrhea, Blood in stool, Vomiting MUSCULOSKELETAL: Negative for: Muscle or joint pain, stiffness, Joint swelling NEUROLOGIC/PSYCHIATRIC: Negative for: Weakness, Paralysis, Numbness, Tingling, Tremor, Anxiety, Depression, Memory loss SKIN: Negative for: Rash, Itching GENITOURINARY: Negative for: vaginal itching, vaginal discharge, hematuria or dysuria SENSITIVE EXAM: The sensitive examination was discussed with the Patient or Patient's Authorized Grievance And Appeals Specialist. As applicable, any other physician, advance practice provider, medical student, or other health professional student that will be observing or involved in the sensitive examination for educational or training purposes was discussed with the Patient or Authorized Grievance And Appeals Specialist. The Patient or Authorized Grievance And Appeals Specialist has agreed to proceed with the sensitive examination. (Sensitive examination includes inspection and/or palpation of the breasts, pelvis, prostate and anorectal regions). PHYSICAL EXAM: BP 114/76 Ht 5' 4 (1.63m) Wt 142 lb (64.4kg) LMP 11/21/2024 BMI 24.36 kg/(m^2). GENERAL: pleasant in no apparent distress DERMATOLOGY: Normal, without lesions, non-icteric, and non-hirsute NECK: Supple, full range of motion, no adenopathy, and thyroid normal CHEST: Normal inspiratory effort BREAST: soft, non-tender, symmetric, no dominant mass, normal nipple-areolar complex, no lymphadenopathy, and no nipple discharge ABDOMEN: soft, non-tender, and no masses NEURO: alert and oriented x3,exam grossly non-focal PELVIS: External genitalia normal without lesions. Perineal body intact. No vaginal or cervical lesions. Cervix closed. Uterus 10 week size. No adnexal masses or tenderness. Clinical Pelvimetry: Pelvimetry clinically assessed as adequate Limited OB ultrasound exam: single intrauterine , positive cardiac activity, crown-rump length 9w1d, and normal bilateral adnexa Dating LMP on: 11/21/2024 GA by LMP 9 w + 1 d BETHANY by LMP: 08/28/2025 Ultrasound examination on: 01/24/2025 GA by U/S based upon: CRL GA by U/S 9 w + 1 d BETHANY by U/S: 08/28/2025 Assigned: based on the LMP, selected on 01/24/2025 Assigned GA 9 w + 1 d Assigned BETHANY: 08/28/2025 ASSESSMENT: 29 year old at 9w1d wks gestational age PLAN: 1) Patient oriented to practice. Patient given new OB orientation folder. Discussed nutrition, folic acid supplementation, dietary guidelines, exercise, smoking, alcohol, caffeine, and drug use. Discussed gestational weight gain guidelines. Discussed hemoglobin electrophoresis. Patient: Accepts Reviewed midwifery and meat soaker services that are available. 2) Screening: Hemoglobin A1C: ordered Baby Aspirin: The patient has been counseled about the potential benefits of low dose aspirin in and our recommendation that this be offered to all patients, regardless of whether they meet the high risk criteria specified above. She Accepts Aneuploidy Screening: Discussed aneuploidy screening, nuchal translucency/first trimester early anatomy ultrasound and NIPT. The risks/benefits and limitations of NIPT/aneuploidy screening were reviewed including the potential for false negative and false positive results. The availability of genetic counseling was reviewed. Information on aneuploidy screening was provided. The patient chooses to proceed with First trimester early anatomy ultrasound (12-13w6d), NIPT (10 weeks), and If concerns with insurance coverage, patient to call back for sequential order. [facility] Carrier Screening: Discussed myriad carrier screening. We discussed the availability of professional-society guided carrier screening and reviewed the conditions screened and limitations of screening. The availability of genetic counseling was reviewed. Information on carrier screening was provided. The patient Accepts 3) Patient offered option of Virtual Visits. Patient prefers in person visits. Follow up in 4 weeks or sooner prn. Patricia Nelson APRN.CNM OB point of care ultrasound was performed. See imaging tab for details. Tanmay Moore MA documented in this encounter [facility] 01-24-2025 Instructions Tanmay Moore MA - 01/24/2025 12:31 PM EST Please select the following link to access the [facility] Your Guide to a Healthy . [email or web address] documented in this encounter [facility] 01-23-2025 Telephone encounter Note Patient called back and Brenna was not available. She is available only until 3pm and then is in meetings until 8 tonight. She is aware to come in 30 minutes early if she does not speak to her today. Fawn Boston RN [facility] 01-23-2025 Miscellaneous Notes Patient called back and Brenna was not available. She is available only until 3pm and then is in meetings until 8 tonight. She is aware to come in 30 minutes early if she does not speak to her today. Fawn Boston RN Contacted patient by phone with phone number listed in chart. Patient was unable to complete the new ob intake because she was waiting for a phone call. Patient stated she will attempt to call back tomorrow 01/23/25. Patient was advised if she is unable to reach a person over the phone, to come to her appointment 30 minutes prior to her scheduled time.Brenna Deras MA documented in this encounter [facility] 01-22-2025 Telephone encounter Note Contacted patient by phone with phone number listed in chart. Patient was unable to complete the new ob intake because she was waiting for a phone call. Patient stated she will attempt to call back tomorrow 01/23/25. Patient was advised if she is unable to reach a person over the phone, to come to her appointment 30 minutes prior to her scheduled time.Brenna Deras MA [facility] 12-13-2024 Note HNO ID: [id number] Author: ELVIA MCKEON MD Service: ? Author Type: Physician Type: Progress Notes Filed: 12/13/2024 11:51 Note Text: 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 Natalie is a 29 year old Female who presents today for a colposcopy. The patient's last pap smear was ASCUS with positive HPV from November 2024. Patient has a history of abnormal pap: No. The patient has had prior treatment: none. test: negative UNIVERSAL PROTOCOL / SAFETY CHECKLIST Procedure to be Performed: Colposcopy with Possible Biopsy Sign In: A Moment of CARE was completed. Personnel directly involved with the procedure wore the appropriate PPE (Personal Protective Equipment). Patient/Surrogate Stated/Verified: PATIENT VERIFIED(optional for EMERGENT procedures): Patient name, Date of , Relevant allergies, and The intended procedure Time Out Communication: Intended patient and procedure match the source documents. Consent documented and matches the intended procedure. Sign Out: SIGN OUT (optional for EMERGENT procedures): No specimen collected. All instruments, equipment, possible retained foreign bodies accounted for. PROCEDURE: EXTERNAL GENITALIA: Normal in appearance without lesions VAGINA: Normal in appearance without lesions CERVIX: Speculum placed in vagina and excellent visualization of cervix achieved. Cervix swabbed x 3 with 3% acetic acid solution. Cervix grossly normal. Squamocolumnar junction visualized. No acetowhite changes, punctations, mosaicism or atypical vasculature noted. BIOPSY: Not done. ECC: not done Procedure Summary: Patient tolerated procedure well and colposcopy was adequate. ASSESSMENT: HPV effect PLAN: Yearly paps Elvia Mckeon MD [facility] 12-13-2024 History of Presen t illness Narrative 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 Natalie is a 29 year old Female who presents today for a colposcopy. The patient's last pap smear was ASCUS with positive HPV from November 2024. Patient has a history of abnormal pap: No. The patient has had prior treatment: none. test: negative UNIVERSAL PROTOCOL / SAFETY CHECKLIST Procedure to be Performed: Colposcopy with Possible Biopsy Sign In: A Moment of CARE was completed. Personnel directly involved with the procedure wore the appropriate PPE (Personal Protective Equipment). Patient/Surrogate Stated/Verified: PATIENT VERIFIED(optional for EMERGENT procedures): Patient name, Date of , Relevant allergies, and The intended procedure Time Out Communication: Intended patient and procedure match the source documents. Consent documented and matches the intended procedure. Sign Out: SIGN OUT (optional for EMERGENT procedures): No specimen collected. All instruments, equipment, possible retained foreign bodies accounted for. PROCEDURE: EXTERNAL GENITALIA: Normal in appearance without lesions VAGINA: Normal in appearance without lesions CERVIX: Speculum placed in vagina and excellent visualization of cervix achieved. Cervix swabbed x 3 with 3% acetic acid solution. Cervix grossly normal. Squamocolumnar junction visualized. No acetowhite changes, punctations, mosaicism or atypical vasculature noted. BIOPSY: Not done. ECC: not done Procedure Summary: Patient tolerated procedure well and colposcopy was adequate. ASSESSMENT: HPV effect PLAN: Yearly paps Elvia Mckeon MD documented in this encounter [facility] 12-13-2024 Instructions Gabi Kim MA - 12/13/2024 10:33 AM EST YOUR RECOVERY It may take a few weeks for your cervix to heal. While your cervix heals, you may have: - Vaginal bleeding (less than a normal menstrual period) - Mild cramping - A brown-black vaginal discharge (similar to coffee grounds) which is a result of the paste used to help stop bleeding from the procedure Do NOT put anything in the vagina for 1 week after your colposcopy if your doctor does a biopsy of your cervix. This includes sex, tampons, and douches. If you have any discomfort, you may take an over the counter pain medication (motrin, advil, ibuprofen, tylenol, etc). If this does not relieve your discomfort, contact your doctor's office for a prescription strength pain medication. It is okay to wear a sanitary pad until the discharge and spotting stops. RISKS Although problems seldom occur with colposcopy, there can be some complications. You may feel faint during and shortly after the procedure as well as have some bleeding and vaginal discharge after the procedure. There is also a risk of infection after the procedure. These complications are rare and can be easily treated. You should contact you doctor is you have any of the following: - Heavy bleeding (more than your normal period) - Bleeding with clots - Severe abdominal pain - Fever (more than 100.4F) - Foul smelling vaginal discharge RESULTS If a biopsy was taken, we will have the results of your biopsy in 1-2 weeks. If you do not hear the results of your biopsy after 2 weeks, please contact your physicians office for the results. Depending on the biopsy results, your doctor will determine your follow up plan which may include further testing or treatments. STAYING HEALTHY After the procedure, you will need to see your doctor for follow up visits during the year. At these visits your doctor will check the health of your cervix with a pap smear. After three normal pap smears, your doctor will allow you to return to having exams once a year. If you have another abnormal pap smear, you may need closer follow up for longer or you may need additional treatment. By making a few lifestyle changes after the procedure, you can help protect the health of your cervix: - Have regular pelvic exams and pap smears as ordered by your doctor. - Stop smoking as smoking increases your risk of developing a cancer of the cervix - If you have more than one sexual partner, limit your number of partners and use condoms to reduce your risks of STDs. If you have any additional questions, please contact your doctor's office. documented in this encounter [facility] 12-06-2024 Telephone encounter Note Pt notified and appt scheduled. [employer] message sent with HPV educational material per Pt request. Vega Howard RN [facility] 12-06-2024 Miscellaneous Notes Pt notified and appt scheduled. [employer] message sent with HPV educational material per Pt request. Vega Howard RN Left message to call office. Charlotte Murdock RN Pap ASCUS and HPV+, she will need a colp. Order filed. Raegan Stanford APRN.JOSE CARLOS documented in this encounter [facility] 12-06-2024 Telephone encounter Note Left message to call office. Charlotte Murdock RN [facility] 12-06-2024 Telephone encounter Note Pap ASCUS and HPV+, she will need a colp. Order filed. Raegan Stanford APRN.CNP [facility] 11-29-2024 Note HNO ID: [id number] Author: PUJA DAVENPORT APRN.CNP Service: ? Author Type: Nurse Practitioner Type: Progress Notes Filed: 11/29/2024 13:51 Note Text: 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 Natalie is a 29 year old who presents for an annual gynecologic exam without complaints. Trying for . 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 [employer] History Comments: Sexual Activity: Yes; Male Contraception: None Menstrual Tracking History Flowsheet Row Office Visit from 11/21/2024 in OB/Gynecology Period Cycle (Days) 28 Period Duration (Days) 5 Menstrual Flow Moderate PAST MEDICAL HISTORY Diagnosis Date NEGATIVE MEDICAL HISTORY PAST SURGICAL HISTORY Procedure Laterality Date PAST SURGICAL HISTORY OF Right 2010 cornea transplant ( partial) FAMILY HISTORY Problem Relation Age of Onset Cervical Cancer Mother Full hysterectomy Breast Cancer Maternal Grandmother treated with pills SOCIAL HISTORY Social History Tobacco Use Smoking status: Never Smokeless tobacco: Never Vaping Use Vaping status: Never Used Substance Use Topics Alcohol use: Yes Comment: socially Drug use: Never REVIEW OF SYSTEMS Abdomen: No abdominal pain, nausea, vomiting, diarrhea, or constipation. No bloating, early satiety, indigestion, or increased flatulence. Bladder: No dysuria, gross hematuria, urinary frequency, urinary urgency, or incontinence. Breast: No breast lumps, nipple d/c, overlying skin changes, redness or skin retraction. Allergies and current medication updated:Yes SENSITIVE EXAM: The sensitive examination was discussed with the Patient or Patient's Authorized Grievance And Appeals Specialist. As applicable, any other physician, advance practice provider, medical student, or other health professional student that will be observing or involved in the sensitive examination for educational or training purposes was discussed with the Patient or Authorized Grievance And Appeals Specialist. The Patient or Authorized Grievance And Appeals Specialist has agreed to proceed with the sensitive examination. (Sensitive examination includes inspection and/or palpation of the breasts, pelvis, prostate and anorectal regions). EXAM: BP 110/62 Ht 5' 4 (1.63m) Wt 144 lb (65.3kg) LMP 10/21/2024 BMI 24.71 kg/(m2). GENERAL: pleasant, female in no apparent distress HEENT: Normocephalic, atraumatic, mucus membranes moist, and no lesions NECK: Supple, full range of motion, no adenopathy, and thyroid normal DERMATOLOGY: Normal, without lesions, non-icteric, and non-hirsute BREAST: soft, non-tender, symmetric, no dominant mass, normal nipple-areolar complex, no lymphadenopathy, and no nipple discharge CHEST: Normal inspiratory effort ABDOMEN: soft, non-tender, and no masses PELVIC: external genitalia normal, normal Bartholin's glands, urethra, Reid's glands, no vulvar lesions, no cervical lesions, good vaginal support, physiologic discharge present, normal appearing perineal body and perianal region BIMANUAL: uterus normal size, shape and consistency, no adnexal masses, and non-tender RECTOVAGINAL: deferred. NEURO: alert and oriented x3,exam grossly non-focal EXTREMITIES: normal ASSESSMENT/PLAN: 1) Health maintenance: Pap done with reflex HPV. Mammogram starting age 40. Calcium/Vitamin D supplementation information provided. HPV vaccine: completed series 2) Contraception: none. Contraceptive options reviewed and information provided. 3) STD screening: Declined STD check. 4) Follow up one year or sooner as needed Desire for - ICD9: V26.9, ICD10: Z31.9 - Continue vitamin - VITAMIN D 25 HYDROXY - VARICELLA ZOSTER IGG - RUBELLA IGG ANTIBODY - THYROID STIMULATING HORMONE - Discussed carrier screening - wants to check with insurance Puja Davenport APRN.JOSE CARLOS [facility] 11-29-2024 History of Presen t illness Narrative 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 Natalie is a 29 year old who presents for an annual gynecologic exam without complaints. Trying for . 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 [employer] Department History Comments: Sexual Activity: Yes; Male Contraception: None Menstrual Tracking History Flowsheet Row Office Visit from 11/21/2024 in OB/Gynecology Period Cycle (Days) 28 Period Duration (Days) 5 Menstrual Flow Moderate PAST MEDICAL HISTORY Diagnosis Date NEGATIVE MEDICAL HISTORY PAST SURGICAL HISTORY Procedure Laterality Date PAST SURGICAL HISTORY OF Right 2010 cornea transplant ( partial) FAMILY HISTORY Problem Relation Age of Onset Cervical Cancer Mother Full hysterectomy Breast Cancer Maternal Grandmother treated with pills SOCIAL HISTORY Social History Tobacco Use Smoking status: Never Smokeless tobacco: Never Vaping Use Vaping status: Never Used Substance Use Topics Alcohol use: Yes Comment: socially Drug use: Never REVIEW OF SYSTEMS Abdomen: No abdominal pain, nausea, vomiting, diarrhea, or constipation. No bloating, early satiety, indigestion, or increased flatulence. Bladder: No dysuria, gross hematuria, urinary frequency, urinary urgency, or incontinence. Breast: No breast lumps, nipple d/c, overlying skin changes, redness or skin retraction. Allergies and current medication updated:Yes SENSITIVE EXAM: The sensitive examination was discussed with the Patient or Patient's Authorized Grievance And Appeals Specialist. As applicable, any other physician, advance practice provider, medical student, or other health professional student that will be observing or involved in the sensitive examination for educational or training purposes was discussed with the Patient or Authorized Grievance And Appeals Specialist. The Patient or Authorized Grievance And Appeals Specialist has agreed to proceed with the sensitive examination. (Sensitive examination includes inspection and/or palpation of the breasts, pelvis, prostate and anorectal regions). EXAM: BP 110/62 Ht 5' 4 (1.63m) Wt 144 lb (65.3kg) LMP 10/21/2024 BMI 24.71 kg/(m^2). GENERAL: pleasant, female in no apparent distress HEENT: Normocephalic, atraumatic, mucus membranes moist, and no lesions NECK: Supple, full range of motion, no adenopathy, and thyroid normal DERMATOLOGY: Normal, without lesions, non-icteric, and non-hirsute BREAST: soft, non-tender, symmetric, no dominant mass, normal nipple-areolar complex, no lymphadenopathy, and no nipple discharge CHEST: Normal inspiratory effort ABDOMEN: soft, non-tender, and no masses PELVIC: external genitalia normal, normal Bartholin's glands, urethra, Reid's glands, no vulvar lesions, no cervical lesions, good vaginal support, physiologic discharge present, normal appearing perineal body and perianal region BIMANUAL: uterus normal size, shape and consistency, no adnexal masses, and non-tender RECTOVAGINAL: deferred. NEURO: alert and oriented x3,exam grossly non-focal EXTREMITIES: normal ASSESSMENT/PLAN: 1) Health maintenance: Pap done with reflex HPV. Mammogram starting age 40. Calcium/Vitamin D supplementation information provided. HPV vaccine: completed series 2) Contraception: none. Contraceptive options reviewed and information provided. 3) STD screening: Declined STD check. 4) Follow up one year or sooner as needed Desire for - ICD9: V26.9, ICD10: Z31.9 - Continue vitamin - VITAMIN D 25 HYDROXY - VARICELLA ZOSTER IGG - RUBELLA IGG ANTIBODY - THYROID STIMULATING HORMONE - Discussed carrier screening - wants to check with insurance Puja Davenport APRN.JOSE CARLOS documented in this encounter [facility] 11-21-2024 Note HNO ID: [id number] Author: ASHLEE WHITNEY APRN.CNM Service: ? Author Type: Senior Human Resources Representative Type: Progress Notes Filed: 11/21/2024 16:03 Note Text: Natalie Sexton is a 29 year old female who presents for problem visit of spotting in . LMP was 10/21/24. She reports that last Monday she took HPT that resulted positive. She began bleeding last night and is bleeding like a period today. She stopped OCP last August and has actively been trying for with . OB History No obstetric history on file. 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 No pertinent past medical history. History reviewed. No pertinent surgical history. FAMILY HISTORY Problem Relation Age of Onset Cervical Cancer Mother Full hysterectomy Breast Cancer Maternal Grandmother treated with pills Social History Tobacco Use Smoking status: Never Smokeless tobacco: Never Substance Use Topics Alcohol use: Yes Comment: socially Drug use: Never No current outpatient medications on file. No current facility-administered medications for this visit. Allergies As of Date: 11/21/2024 (No Known Allergies) Fully Assessed 11/21/2024 REVIEW OF SYSTEMS Abdomen: No bloating, early satiety, indigestion, or increased flatulence. No abdominal pain, nausea, vomiting, diarrhea, or constipation. Bladder: No dysuria, gross hematuria, urinary frequency, urinary urgency, or incontinence. Breast: No breast lumps, nipple d/c, overlying skin changes, redness or skin retraction. Expanded ROS: N/A Allergies and current medication updated:Yes SENSITIVE EXAM: Sensitive exam not performed. EXAM: BP 114/70 Wt 143 lb (64.9kg) LMP 10/21/2024 GENERAL: pleasant and emotional, female in no apparent distress HEENT: Normocephalic and atraumatic NECK: Supple and full range of motion DERMATOLOGY: Normal and without lesions BREAST: deferred CHEST: Normal inspiratory effort ABDOMEN: Deferred PELVIC: deferred BIMANUAL: deferred NEURO: alert and oriented x3,exam grossly non-focal EXTREMITIES: normal ASSESSMENT AND PLAN: Assessment AND Plan Missed menses Orders: UA DIP,URINE HCG (POC) HCG QUANTITATIVE; Standing - Urine HCG is NEGATIVE - Reviewed findings with patient and discussed this is more than likely her menses starting - Support provided - Tearful due to desire for - Taking vitamins - Stated needs an annual exam with PAP - RTO as needed and for annual Ashlee Whitney APRN.CNM [facility] 11-21-2024 History of Presen t illness Narrative Natalie Sexton is a 29 year old female who presents for problem visit of spotting in . LMP was 10/21/24. She reports that last Monday she took HPT that resulted positive. She began bleeding last night and is bleeding like a period today. She stopped OCP last August and has actively been trying for with . OB History No obstetric history on file. 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 No pertinent past medical history. History reviewed. No pertinent surgical history. FAMILY HISTORY Problem Relation Age of Onset Cervical Cancer Mother Full hysterectomy Breast Cancer Maternal Grandmother treated with pills Social History Tobacco Use Smoking status: Never Smokeless tobacco: Never Substance Use Topics Alcohol use: Yes Comment: socially Drug use: Never No current outpatient medications on file. No current facility-administered medications for this visit. Allergies As of Date: 11/21/2024 (No Known Allergies) Fully Assessed 11/21/2024 REVIEW OF SYSTEMS Abdomen: No bloating, early satiety, indigestion, or increased flatulence. No abdominal pain, nausea, vomiting, diarrhea, or constipation. Bladder: No dysuria, gross hematuria, urinary frequency, urinary urgency, or incontinence. Breast: No breast lumps, nipple d/c, overlying skin changes, redness or skin retraction. Expanded ROS: N/A Allergies and current medication updated:Yes SENSITIVE EXAM: Sensitive exam not performed. EXAM: BP 114/70 Wt 143 lb (64.9kg) LMP 10/21/2024 GENERAL: pleasant and emotional, female in no apparent distress HEENT: Normocephalic and atraumatic NECK: Supple and full range of motion DERMATOLOGY: Normal and without lesions BREAST: deferred CHEST: Normal inspiratory effort ABDOMEN: Deferred PELVIC: deferred BIMANUAL: deferred NEURO: alert and oriented x3,exam grossly non-focal EXTREMITIES: normal ASSESSMENT AND PLAN: Assessment & Plan Missed menses Orders: UA DIP,URINE HCG (POC) HCG QUANTITATIVE; Standing - Urine HCG is NEGATIVE - Reviewed findings with patient and discussed this is more than likely her menses starting - Support provided - Tearful due to desire for - Taking vitamins - Stated needs an annual exam with PAP - RTO as needed and for annual Ashlee Whitney APRN.CNM documented in this encounter [facility] 11-21-2024 Telephone encounter Note Pt notified and appt made today with CP at 4pm. Vega Howard RN [facility] 11-21-2024 Miscellaneous Notes Pt notified and appt made today with CP at 4pm. Vega Howard RN I can't order labs on a patient we have never seen. Please offer her a visit at 4pm today with CP so that labs can be ordered. Sandoval Alvarado MD LMP 10/21/24. [facility] appt scheduled for 12/13/24. Pt states for the past week she has been crampy and last night noticed light pink vaginal bleeding. This morning woke up with blood on her paints and in the toilet and clots noted. States she placed a tampon about an hour ago. Advised Pt to take tampon out and place a pad to better monitor the bleeding. Advised Pt that if her bleeding becomes heavy to where she is saturating a pad (front to back, side to side) in one hour or less for two hours or more, she develops shortness of breath, chest pain, dizziness, or fatigue to please call the office or go to the nearest Emergency Room. HCG levels pending if appropriate. Please advise since Pt has not been seen in our office. Vega Howard RN documented in this encounter [facility] 11-21-2024 Telephone encounter Note I can't order labs on a patient we have never seen. Please offer her a visit at 4pm today with CP so that labs can be ordered. Sandoavl Alvarado MD [facility] Work Phone: 11-21-2024 Telephone encounter Note LMP 10/21/24. [facility] appt scheduled for 12/13/24. Pt states for the past week she has been crampy and last night noticed light pink vaginal bleeding. This morning woke up with blood on her paints and in the toilet and clots noted. States she placed a tampon about an hour ago. Advised Pt to take tampon out and place a pad to better monitor the bleeding. Advised Pt that if her bleeding becomes heavy to where she is saturating a pad (front to back, side to side) in one hour or less for two hours or more, she develops shortness of breath, chest pain, dizziness, or fatigue to please call the office or go to the nearest Emergency Room. HCG levels pending if appropriate. Please advise since Pt has not been seen in our office. Vega Howard RN [facility] Evaluation note Diagnosis Bleeding in early - Primary Unspecified hemorrhage in early , unspecified as to episode of care [facility] Diagnosis Missed menses- Primary Absence of menstruation [facility] Diagnosis Encounter for gynecological examination (general) (routine) without abnormal findings- Primary Screening for cervical cancer Screening for malignant neoplasm of the cervix Desire for Unspecified procreative management Screening for thyroid disorder Encounter for preconception consultation Other procreative management counseling and advice Encounter for vitamin deficiency screening Screening for other and unspecified endocrine, nutritional, metabolic, and immunity disorders [facility] Diagnosis ASCUS with positive high risk HPV cervical- Primary Cervical high risk human papillomavirus (HPV) DNA test positive [facility] Diagnosis ASCUS with positive high risk HPV cervical- Primary Cervical high risk human papillomavirus (HPV) DNA test positive [facility] Diagnosis Supervision of other high risk pregnancies, first trimester- Primary Encounter for test, result positive examination or test, positive result Confirm viability with history of miscarriage, ultrasound Encounter for routine screening for malformation using ultrasonics ASCUS with positive high risk HPV cervical Cervical high risk human papillomavirus (HPV) DNA test positive [facility] Diagnosis Encounter for screening for malformation using ultrasound (HCC)- Primary 13 weeks gestation of ([facility]) state, incidental Encounter for (NT) nuchal translucency scan (HCC) Other specified screening [facility] Diagnosis Supervision of high risk in second trimester (HCC)- Primary Unspecified high-risk 13 weeks gestation of ([facility]) state, incidental [facility] Diagnosis 17 weeks gestation of ([facility])- Primary state, incidental Supervision of high risk in second trimester ([facility]) Unspecified high-risk [facility] Diagnosis 24 weeks gestation of ([facility])- Primary state, incidental Supervision of high risk in second trimester ([facility]) Unspecified high-risk Screening for diabetes mellitus [facility] Diagnosis Supervision of high risk in second trimester (HCC)- Primary Unspecified high-risk 28 weeks gestation of ([facility]) state, incidental [facility] Diagnosis Supervision of high risk in second trimester (HCC)- Primary Unspecified high-risk 30 weeks gestation of ([facility]) state, incidental Elevated glucose tolerance test Impaired glucose tolerance test [facility] Diagnosis Supervision of high risk in second trimester (HCC)- Primary Unspecified high-risk 32 weeks gestation of ([facility]) state, incidental Abnormal glucose complicating (HCC) Abnormal maternal glucose tolerance, complicating , childbirth, or the puerperium, unspecified as to episode of care [facility] Diagnosis 34 weeks gestation of (HCC)- Primary state, incidental Encounter for supervision of other normal in third trimester (HCC) Supervision of other high risk pregnancies, first trimester ([facility]) documented in this encounter [facility] note* Diagnosis Encounter for supervision of other normal in third trimester (HCC)- Primary 36 weeks gestation of (HCC) state, incidental documented in this encounter [facility] for referral (narrative)* Outpatient Procedure (Routine) - Authorized Specialty Diagnoses / Procedures Referred By Farzana antoine Referred To Contact [facility] Diagnoses ASCUS with positive high risk HPV cervical Procedures COLPOSCOPY COLPOSCOPY CERVIX BX CERVIX & ENDOCRV CURRETAGE COLPOSCOPY ENTIRE VAGINA W/CERVIX IF PRESENT Raegan Stanford APRN.CNP [address] [place] [address] [address] Referral ID Status Reason Start Date Expiration Date Visits Requested Visits Authorized [id number] Authorized Auto-Generat ed Referral 12/06/2024 11/19/2025 1 1 [facility] for referral (narrative)* Outpatient Procedure (Routine) - New Request Specialty Diagnoses / Procedures Referred By Contac t Referred To Contact [facility] Diagnoses ASCUS with positive high risk HPV cervical Procedures COLPOSCOPY COLPOSCOPY CERVIX BX CERVIX & ENDOCRV CURRETAGE Elvia Mckeon MD [address] [place] [address] [address] Referral ID Status Reason Start Date Expiration Date Visits Requested Visits Authorized [id number] New Request Auto-Generat ed Referral 12/13/2024 12/13/2025 1 1 [facility] Summary Purpose Family History No Family History Records FoundNo Family History Records FoundNo Family History Records Found Advance Directives No Advanced Directives Records FoundNo Advanced Directives Records FoundNo Advanced Directives Records Found Additional Source Comments INFORMATION SOURCE (unrecogn ized section and content) DATE CREATED AUTHOR 01/04/2024 [facility] DATE CREATED AUTHOR AUTHOR'S ORGANIZ ATION 07/23/2025 [facility] DATE CREATED AUTHOR AUTHOR'S ORGANIZ ATION 08/09/2025 [facility] Source Comments (unrecognize d section and content) In the event this informatio n is protected by the Federal Confidentiality of Alcohol and Drug Abuse Patient Records regulations: The Federal rules restrict any use of the information to criminally investigate or prosecute any alcohol or drug abuse patient.[facility] the event this information is protected by the Federal Confidentiality of Alcohol and Drug Abuse Patient Records regulations: The Federal rules restrict any use of the information to criminally investigate or prosecute any alcohol or drug abuse patient.[facility] the event this information is protected by the Federal Confidentiality of Alcohol and Drug Abuse Patient Records regulations: The Federal rules restrict any use of the information to criminally investigate or prosecute any alcohol or drug abuse patient.[facility] the event this information is protected by the Federal Confidentiality of Alcohol and Drug Abuse Patient Records regulations: The Federal rules restrict any use of the information to criminally investigate or prosecute any alcohol or drug abuse patient.[facility] the event this information is protected by the Federal Confidentiality of Alcohol and Drug Abuse Patient Records regulations: The Federal rules restrict any use of the information to criminally investigate or prosecute any alcohol or drug abuse patient.[facility] the event this information is protected by the Federal Confidentiality of Alcohol and Drug Abuse Patient Records regulations: The Federal rules restrict any use of the information to criminally investigate or prosecute any alcohol or drug abuse patient.[facility] the event this information is protected by the Federal Confidentiality of Alcohol and Drug Abuse Patient Records regulations: The Federal rules restrict any use of the information to criminally investigate or prosecute any alcohol or drug abuse patient.[facility] the event this information is protected by the Federal Confidentiality of Alcohol and Drug Abuse Patient Records regulations: The Federal rules restrict any use of the information to criminally investigate or prosecute any alcohol or drug abuse patient.[facility] the event this information is protected by the Federal Confidentiality of Alcohol and Drug Abuse Patient Records regulations: The Federal rules restrict any use of the information to criminally investigate or prosecute any alcohol or drug abuse patient.[facility] the event this information is protected by the Federal Confidentiality of Alcohol and Drug Abuse Patient Records regulations: The Federal rules restrict any use of the information to criminally investigate or prosecute any alcohol or drug abuse patient.[facility] the event this information is protected by the Federal Confidentiality of Alcohol and Drug Abuse Patient Records regulations: The Federal rules restrict any use of the information to criminally investigate or prosecute any alcohol or drug abuse patient.[facility] the event this information is protected by the Federal Confidentiality of Alcohol and Drug Abuse Patient Records regulations: The Federal rules restrict any use of the information to criminally investigate or prosecute any alcohol or drug abuse patient.[facility] the event this information is protected by the Federal Confidentiality of Alcohol and Drug Abuse Patient Records regulations: The Federal rules restrict any use of the information to criminally investigate or prosecute any alcohol or drug abuse patient.[facility] the event this information is protected by the Federal Confidentiality of Alcohol and Drug Abuse Patient Records regulations: The Federal rules restrict any use of the information to criminally investigate or prosecute any alcohol or drug abuse patient.[facility] the event this information is protected by the Federal Confidentiality of Alcohol and Drug Abuse Patient Records regulations: The Federal rules restrict any use of the information to criminally investigate or prosecute any alcohol or drug abuse patient.[facility]In the event this information is protected by the Federal Confidentiality of Alcohol and Drug Abuse Patient Records regulations: The Federal rules restrict any use of the information to criminally investigate or prosecute any alcohol or drug abuse patient.[facility] the event this information is protected by the Federal Confidentiality of Alcohol and Drug Abuse Patient Records regulations: The Federal rules restrict any use of the information to criminally investigate or prosecute any alcohol or drug abuse patient.[facility] the event this information is protected by the Federal Confidentiality of Alcohol and Drug Abuse Patient Records regulations: The Federal rules restrict any use of the information to criminally investigate or prosecute any alcohol or drug abuse patient.[facility] Reason for Visit (unrecogniz ed section and content) Reason Comments Early OB bleeding Reason Comments Missed Menses Reason Comments Well Woman Reason Comments Results Abnormal Pap Reason Comments Colposcopy Specialty Diagnoses / Procedures Referred By Farzana antoine Referred To Contact [facility] Diagnoses ASCUS with positive high risk HPV cervical Procedures COLPOSCOPY COLPOSCOPY CERVIX BX CERVIX & ENDOCRV CURRETAGE COLPOSCOPY ENTIRE VAGINA W/CERVIX IF PRESENT Raegan Stanford APRN.RN HEART [address] [place] [address] [address] Referral ID Status Reason Start Date Expiration Date V isits Requested Visits Authorized [id number] Closed Auto-Generate d Referral 12/06/2024 11/19/2025 1 1 Reason Comments Initial OB Visit Reason Comments US Specialty Diagnoses / Procedures Referred By Farzana antoine Referred To Contact [facility] Diagnoses with uncertain dates, antepartum (HCC) Procedures OBSTETRIC ULTRASOUND WHI US PREG UTERUS AFTER 1ST TRIMEST GESTATION Patricia Nelson APRN.CNM [address] [place] [address] Phone: tel: fax: [address] [phone] Referral ID Status Reason Start Date Expiration Date V isits Requested Visits Authorized [id number] Closed Auto-Generate d Referral 02/12/2025 11/19/2025 1 1 Reason Onset Date Comments Care 02/24/2025 Reason Comments Breast Pump Reason Onset Date Comments Care 05/09/2025 Reason Onset Date Comments Care 06/06/2025 Reason Onset Date Comments Care 06/20/2025 Reason Onset Date Comments Care 07/07/2025 Reason Onset Date Comments Care 07/22/2025 Reason Onset Date Comments Care 08/01/2025 FOR RECORDS PERTAINING TO PATIENTS WHO ARE OR HAVE BEEN ENROLLED IN A CHEMICAL DEPENDENCY/SUBSTANCEABUSE PROGRAM, SOME INFORMATION MAY BE OMITTED. This clinical summary was aggregated from multiple sources. Caution should be exercised in using it in the provision of clinical care. This summary normalizes information from multiple sources, and as a consequence, information in this document may materially change the coding, format and clinical context of patient data. In addition, data may be omitted in some cases. CLINICAL DECISIONS SHOULD BE BASED ON THE PRIMARY CLINICAL RECORDS. [facility] [employer] [facility]. provides no warranty or guarantee of the accuracy or completeness of information in this document.
[2025-08-10 04:57] LABS: ROM Internal Control Test YES-OK TO RESULT pt. (Internal QC)
[2025-08-10 04:58] LABS: ROM Patient Test POSITIVE (Negative); Record Kit Lot#, ROM+ K3358
--- NOTE | 2025-08-10 04:58 | PCM.HP.OB ---
HPI - General General Date of Admission: 08/10/25 Date of Service: 08/10/25 HPI Narrative SAMANTHA HEAD, is a 30 F who presents with SROM and 6 cm. GBS negative Maternal Data Information Final BETHANY: 08/[birth year]/25 Gestational age: 39+3 PFSH PFSH Home Medications ?Medication ?Instructions ?Recorded ?Last Taken ?Type vit no.95-ferrous 1 tab PO DAILY 08/10/25 08/08/25 History fumarate 28 mg-folic acid 800 mcg tablet () Allergy/AdvReac Type Severity Reaction Status Date / Time No Known Allergies Allergy Verified 08/10/25 04:37 History 1 Elective abortions Hx Para 0 Spontaneous abortions Hx # Term Pregnancies Ectopic pregnancies Hx # Pregnancies Multiple births # of living children NST FHR Rate Baby A Baseline: 140 Variability:: Moderate Accelerations:: 15 x 15 Decelerations:: None NST Reactive:: Yes ROS Constitutional Constitutional: Denies fatigue, fever(s) or malaise Eyes Eyes: Denies change in vision ENT HEENT: Denies dizziness or headache(s) Cardiovascular Cardiovascular: Denies chest pain, dyspnea or lightheadedness Respiratory/Chest Respiratory/Chest: Denies cough or dyspnea Gastrointestinal Gastrointestinal: Denies change in bowel habits Genitourinary Genitourinary: Denies burning urination or genital lesions Integumentary Integumentary: Denies rash Neurologic Neurologic: Denies confusion, dizziness, headache(s), numbness or weakness Vital Signs Vital Signs Vital Signs: 08/10/25 04:29 08/10/25 04:29 08/10/25 04:30 Temperature Temperature Source Temporal Pulse Rate 96 Respiratory Rate Blood Pressure BP Systolic BP Diastolic Pulse Ox 100 08/10/25 04:30 08/10/25 04:30 08/10/25 04:31 Temperature 97.4 F L Temperature Source Pulse Rate Respiratory Rate 18 Blood Pressure 124/69 H BP Systolic 124 BP Diastolic 69 Pulse Ox 08/10/25 04:31 Temperature Temperature Source Pulse Rate 90 Respiratory Rate Blood Pressure BP Systolic BP Diastolic Pulse Ox Weight Weight: 80.104 kg Body Mass Index (BMI) 30.3 Physical Exam Const alert and no apparent distress General Appearance: cooperative HEENT normocephalic Resp normal respiratory effort Cardio regular rate GI soft to palpation GI Narrative: gravid, nontender, appropriate for gestational age Extremity no calf tenderness General Extremity: edema Skin no wounds Rashes: No rashes noted Psych activity/motor behavior normal Assessment & Plan (1) SROM (spontaneous rupture of membranes): (2) 37 weeks gestation of : PLAN: Plan Admit
[2025-08-10] MEDS: 0.9% Saline Lock 10 ML Syringe IV ×2 (05:19→10:08)
[2025-08-10 05:44] LABS: Hematocrit 39.4 % (37-47); Hemoglobin 12.8 g/dL (12.0-15.0); Immature Granulocytes Count 0.090 X10^3/uL (0.0-0.0); Mean Corp Hgb Conc 32.5 g/dL (32-36); Mean Corpuscular Volume 93.4 fL (81-99); Mean Platelet Vol. 11.0 fl (6.2-12.0); NRBC Flagged by Analyzer 0 % (0-5); Platelet Count 163 K/mm3 (150-450); RBC Distribution Width CV 12.5 % (11.6-14.6); RBC Distribution Width SD 42.5 fl (35.1-43.9); Red Blood Count 4.22 M/mm3 (4.2-5.4); White Blood Count 13.1 K/mm3 (4.4-11.0)
[2025-08-10] MEDS: Oxytocin 15 Units/NS 250ml 15 UNITS/250 ML IV.SOLN 334 UNITS IV (06:16)
--- NOTE | 2025-08-10 06:38 | EX.PCM.OBVAG ---
Assessment & Plan (1) (spontaneous vaginal delivery): Maternal Data Information Final BETHANY: 08/28/25 Gestational age: 37+3 Vaginal Delivery Maternal Presentation Maternal Presentation: Active Labor and Spontaneous Rupture of Membranes Vaginal Delivery Information Procedure Performed: Spontaneous Vaginal Delivery Surgeon/Practitioner: Elvia Mckeon Date of Procedure: 08/10/25 Pre-Procedure Diagnosis: SROM Post-Procedure Diagnosis: Type of anesthesia: None and Local with 1% Lidocaine Estimated Blood Loss: 200 cc Time of Delivery: 06:13 Findings Description of procedure: Patient presented with SROM. She was 6 cm on admission. Quickly progressed to complete and pushed over an intact peritoneum. The vertex delivered MELISSA followed by the anterior and posterior shoulders. The infant cried upon delivery and was placed on the maternal abdomen. The cord was clamped and cut. Cord blood was collected. The placenta delivered with gentle traction. There were bilateral labial lacerations that were repaired with 3-0 Vicryl after injection with 1% lidocaine. 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
[2025-08-10] MEDS: Oxytocin 15 Units/NS 250ml 15 UNITS/250 ML IV.SOLN 83 UNITS IV (06:48)
[2025-08-10] MEDS: GLYCERIN/WITCH HAZEL (TUCKS) MED..PAD 1 EACH TOPICAL (14:51)
[2025-08-11] VITALS: BP 123/82; PULSE 87; RESP 14; TEMP 36.8; O2SAT 96
[2025-08-11 04:47] VITALS: BP 114/80; PULSE 93; RESP 19; TEMP 36.4; O2SAT 97
[2025-08-11 07:32] VITALS: BP 105/66; PULSE 89; RESP 15; TEMP 36.1
--- NOTE | 2025-08-11 08:23 | PCM.PN.OB ---
Subjective Subjective Doing well per patient and nursing staff. Ambulating and taking PO without difficulty. Voiding and passing flatus. Pain controlled. , services for assistance. Denies headache, visual changes, chest pain, shortness of breath, leg pain or increased bleeding. Lochia normal. Objective Data Objective Data Vital Signs: Vital Signs Temp Pulse Resp BP Pulse Ox O2 Del Method 97.0 F L 89 15 105/66 97 Room Air 08/11/25 07:32 08/11/25 07:32 08/11/25 07:32 08/11/25 07:32 08/11/25 04:47 08/11/25 07:32 Oxygen Delivery Method Room Air Weight: 176 lb 9.6 oz Body Mass Index (BMI) 30.3 Intake & Output: Intake and Output for Last 24 Hours 08/09/25 08/10/25 08/11/25 23:59 23:59 23:59 Intake Total 428.13 / 428.13 Output Total 150 / 150 Balance 278.13 / 278.13 Lab / Micro Data 08/10/25 05:17 ROS Constitutional Constitutional: Reports systems reviewed and no addt'l complaints, except as documented; Denies headache(s) Eyes Eyes: Denies acute decrease in peripheral vision, blurry vision or change in vision ENT HEENT: Reports systems reviewed and no addt'l complaints, except as documented Cardiovascular Cardiovascular: Denies chest pain or dizziness Respiratory/Chest Respiratory/Chest: Denies cough, dyspnea, dyspnea on exertion, shortness of breath at rest or shortness of breath with exertion Gastrointestinal Gastrointestinal: Denies abdominal pain, diarrhea, nausea or vomiting Genitourinary Genitourinary: Denies abdominal discomfort Musculoskeletal Musculoskeletal: Denies limited range of motion Integumentary Integumentary: Reports systems reviewed and no addt'l complaints, except as documented Neurologic Neurologic: Reports systems reviewed and no addt'l complaints, except as documented Psychiatric Psychiatric: Reports systems reviewed and no addt'l complaints, except as documented Endocrine Endocrinology: Reports systems reviewed and no addt'l complaints, except as documented Hematologic/Lymphatic Hematologic/Lymphatic: Reports systems reviewed and no addt'l complaints, except as documented Allergic/Immunologic Allergic/Immunologic: Reports systems reviewed and no addt'l complaints, except as documented Physical Exam Const alert and oriented x3 General Appearance: cooperative Orientation / Consciousness: awake, oriented to person, oriented to place and oriented to time Exam Limitations: no limitations HEENT normocephalic Head and Scalp: normal to inspection, normocephalic and atraumatic Face and Sinus: normal facial exam Eyes General Eye: normal appearance of both eyes Neck full ROM Chest Chest: symmetrical chest wall rise Resp normal respiratory effort and normal air movement Auscultation: clear to auscultation bilaterally Cardio regular rate, regular rhythm, S1 normal heart sound, S2 normal heart sound, no murmurs, no rub, no gallops and no clicks GI normal to inspection, nondistended, normoactive bowel sounds and non-tender GI Narrative: Fundus firm 2 below U appearance of the vagina normal Narrative: Normal lochia rubra Bladder / Kidney Exam: no CVA tenderness Back/Spine normal ROM Extremity normal to inspection and full ROM Skin no rashes or lesions noted Neuro oriented x3, CN's II-XII intact bilaterally and moves all extremities Sensorium / Orientation: awake, alert and oriented to person Motor Exam: clonus absent Deep Tendon Reflexes: Rt Patellar (L4): 2+ and Lt Patellar (L4): 2+ Assessment & Plan (1) (spontaneous vaginal delivery): (2) Lactating mother: PLAN: Plan 1) Routine care, PPD #1 2) Vitals signs stable 3) Pain controlled 4) , services PRN 5) D/C home 6) Follow up in 2 weeks and 6 weeks
--- NOTE | 2025-08-11 08:25 | PCM.DC.SUM ---
Providers Date of Admission: 08/10/25 Primary Care Physician: Soni Primary Care Phys Reason For Visit: VAGINAL DELIVERY Diagnosis Discharge Diagnosis (1) (spontaneous vaginal delivery): Status: Acute Code(s): O80 - Encounter for full-term uncomplicated delivery (2) Lactating mother: Status: Acute Code(s): Z39.1 - Encounter for care and examination of lactating mother Plan 1) Routine care, PPD #1 2) Vitals signs stable 3) Pain controlled 4) , services PRN 5) D/C home 6) Follow up in 2 weeks and 6 weeks Medications at Discharge Home Medications vit no.95-ferrous fumarate 28 mg-folic acid 800 mcg tablet () 1 tab PO DAILY 08/10/25 acetaminophen 500 mg tablet 1,000 mg (2 x 500 mg) PO Q6H PRN PRN Pain 1-10 Or Fever #0 tabs 08/11/25 ibuprofen 600 mg tablet 600 mg PO Q6H PRN PRN Pain Score 1-10 #0 tabs 08/11/25 Hospital Course Summary of Care Provided Minutes Spent on Discharge: 15 Weight / BMI Weight Weight: 176 lb 9.6 oz Body Mass Index (BMI) 30.3 ABG / Lab / Microbiology Data 08/10/25 05:17 D/C Instructions Discharge Activity: Return to Normal Activity, May Drive, May Shower and May Take a Tub Bath May resume sexual activity in: 6 weeks Weight Bearing Status: Full weight bearing Call your doctor if you observe: Fever of 101 or Higher, Inability to urinate, Using more than 1 pad per hour, Shortness of breath, Chest pain, Increased palpitations (irregular heartbeat), Calf discomfort and Uncontrolled pain DC O2, CPAP, BIPAP Needs Home O2 Discharge instructions: No Please Follow Up With: Patricia Nelson CNM When: 2 week virtual visit and 6 week visit Meaningful Use Info Meaningful Use Meaningful Use Diagnoses (Choose all that apply): None applicable Discharge Plan Admission Admit Date/Time: 08/10/25 04:49 Primary Reason for Your Visit: Vaginal Delivery Attending Provider: Elvia Mckeon Primary Care Provider: Lalo Physician,No Primary Discharge Orders/Prescriptions Prescriptions: New acetaminophen 500 mg Tablet 1,000 mg PO Q6H PRN PRN (Reason: Pain 1-10 Or Fever) Qty: 0 0RF ibuprofen 600 mg Tablet 600 mg PO Q6H PRN PRN (Reason: Pain Score 1-10) Qty: 0 0RF Continued PNV no.95-ferrous fumarate-FA [] 28 mg iron- 800 mcg tablet 1 tab PO DAILY Referrals / Follow Up: Care Physician,No Primary [Primary Care Provider, Medical] Disposition Disposition (needs filled in before D/C Order can be placed): Home, Self Care
[2025-08-11 10:00] VITALS: BP 131/81; PULSE 83; RESP 18; TEMP 36.5
[2025-08-11] MEDS: SELF ADMINISTRATION OF MEDS 1 EACH NOTE (13:17)
[2025-08-11] MEDS: GLYCERIN/WITCH HAZEL (TUCKS) MED..PAD 1 EACH TOPICAL (13:18)
== END 2025-08-11 14:30 | disposition home or self-care (01) | DRG 807 ==
LOC: WPOUT 04:49 → WP 04:56
PROVIDERS: Admitting Provider Obstetrics & Gynecology; Visit Provider Obstetrics & Gynecology
DX: O42.92 Full-term premature rupture of membranes, unspecified as to length of time between rupture and onset of labor (principal); Z37.0 Single live birth; O70.0 First degree perineal laceration during delivery; Z3A.37 37 weeks gestation of pregnancy
CPT/HCPCS: 59050; 84112; 85025; 86850; 86900; 86901; 99221; A4216; G0378